=== PATIENT | male | born 1950 | race Caucasian/White ===

== ENCOUNTER 2024-07-21 10:41 | Outpatient (AMB) | payer MEDICARE, SELFPAY ==
[2024-07-21 11:38] VITALS: BP 118/60; PULSE 60; O2SAT 100; BMI 22.1
--- NOTE | 2024-07-21 11:38 | MHC.OFFVIS ---
Vital Signs 07/21/24 11:38 Height 5 ft 8 in Weight 145 lb 1.027 oz BMI 22.1 BP 118/60 Blood Pressure Location Lt brachial Position Sitting Pulse 60 Pulse Source Pulse Oximeter Pulse Oximetry (%) 100 Oxygen Delivery Method Room Air Intake Visit Reasons: arthralgia Intake Note: Patient presents for new patient visit on arthralgia pain is worse in the shoulders. Allergies IVP dye Allergy (Mild, Uncoded 07/21/24 11:41) Redness of Skin HPI HPI arthralgia: Details: In December he started a vigourous exercise routine with swimming, walking and go to the gym working out with weights. In early January he started experiencing muscle stiffness in shoulders (R>L) and upper thighs. Left arm is now more stiff than right shoulder. He had difficulty bending knee after 10 minutes from walking up. Lower extremity stiffness is almost resolved. Calf muscles are strained with walks. Hard to sleep due to shoulder pain. Difficulty with dressing himself and taking shower. Cannot drive for more than 20min due to latera thigh and but discomfort R>L. Lower back stiffness No jaw or vision loss or scalp tenderness or headaches Weight is stable. Atorvastatin was held for a month. He had a little bit of benefit with reduced stiffnes. Crestor caused worsening symptoms Tyelnol 650mg 2-3 daily with minimal benefit. He avoids NSAIDs due to hx [place]. R wrist swelling after he banged it on a table a month ago. No family hx of rheumatological disease Ex smoke 3PPD 40 years, quit 2007. Absence for alcohol for 38 years. PMx and PSx: kidney stones, inguinal hernia repar, CAD s/p RCA stent ([place] 10/23/2022). Review of Systems Const All systems reviewed & are unremarkable except as noted in HPI and below Physical Exam Vital Signs: Last Vital Signs Pulse 60 07/21/24 11:38 BP 118/60 07/21/24 11:38 Pulse Ox 100 07/21/24 11:38 Oxygen Delivery Method Room Air 07/21/24 11:38 BMI result Body Mass Index 22.1 Const Other: General: Comfortable CVS: RRR Respiratory: clear to auscultation bilaterally. Good respiratory effort Skin: No lesions seen MSK: Slight swelling of right wrist without tenderness on palpation. Heberden's nodes present. He is able to make a fist with his hands. Shoulder abduction 110 degrees left side and 120 degrees right side. Limited full internal rotation of bilateral shoulders. He is able to externally rotate his shoulders. He is able to get up from chair to exam table without using hands on armrest. No tenderness of trochanteric bursae or along ITP band. Good range of motion of bilateral hips. Good knee flexion. No MTP tenderness. Results Reviewed Results Reviewed: Labs from 02/27/2024 reviewed Assessment & Plan Assessment & Plan (1) Shoulder pain, bilateral: Comment: He has been experiencing chronic shoulder and hip girdle pain and stiffness since late December or early January initially with nocturnal pain. Prior laboratory workup revealed mild elevation in CRP 0.9 mg/dL with normal ESR 02/29/2024 with normal muscle enzymes. He had minimal benefit with decreasing atorvastatin dose with exacerbation of symptoms when his atorvastatin was switched to Crestor. I am more concerned of polymyalgia rheumatica then statin induced myopathy contributing to his symptoms. Recently he hit his right wrist on a table contributing to swelling, which is present on exam without pain. My clinical suspicion for inflammatory arthritis is low. Code(s): M25.511 - Pain in right shoulder; M25.512 - Pain in left shoulder Category: Medical Qualifiers: Chronicity: chronic Qualified Code(s): M25.511 - Pain in right shoulder; M25.512 - Pain in left shoulder; G89.29 - Other chronic pain Plan: Laboratory workup ordered including inflammatory marker Bilateral shoulder x-rays ordered to evaluate for joint pathology contributing to his symptoms If he continues to have elevated inflammatory markers, I will start prednisone 20 mg daily due to my concern for polymyalgia rheumatica He has an appointment with Cardiology next week. I am recommending that he continue his current statin rather than change to another agent at this time Return to clinic in 1 month (2) Myalgia: Code(s): M79.10 - Myalgia, unspecified site Category: Medical Plan: See above Orders: Orders Erythrocyte Sedimentation Rate Today M25.511 - Pain in right shoulder, M25.512 - Pain in left shoulder C Reactive Protein Today M25.511 - Pain in right shoulder, M25.512 - Pain in left shoulder Alanine Aminotransferase Today Z79.60 - residential (current) use of unspecified immunomodulators and immunosuppressants Complete Blood Count Auto Diff Today Z79.60 - keno terminal operator (current) use of unspecified immunomodulators and immunosuppressants Hepatitis B,C Profile Today M25.511 - Pain in right shoulder, M25.512 - Pain in left shoulder T Spot TB Today M25.511 - Pain in right shoulder, M25.512 - Pain in left shoulder Cyclic Citrullinated Peptide Today M25.511 - Pain in right shoulder, M25.512 - Pain in left shoulder Rheumatoid Factor Today M25.511 - Pain in right shoulder, M25.512 - Pain in left shoulder XR shoulder LT min 2V Today M25.511 - Pain in right shoulder, M25.512 - Pain in left shoulder XR shoulder RT min 2V Today M25.511 - Pain in right shoulder, M25.512 - Pain in left shoulder Aldolase Today M79.10 - Myalgia, unspecified site Aspartate Amino Transferase Today Z79.60 - residential (current) use of unspecified immunomodulators and immunosuppressants Creatinine Today Z79.60 - keno terminal operator (current) use of unspecified immunomodulators and immunosuppressants Creatine Kinase Total Today M79.10 - Myalgia, unspecified site Coding Level of Care Code New Pt Level 4 (05272) Diagnoses Chronic pain of both shoulders M25.511; M25.512; G89.29 Chronicity: chronic Myalgia M79.10
== END 2024-07-21 14:20 | disposition home or self-care (01) ==
PROVIDERS: Visit Provider Internal Medicine Rheumatology
DX: M25.511 Pain in right shoulder (principal); M25.512 Pain in left shoulder; G89.29 Other chronic pain; M79.10 Myalgia, unspecified site
CPT/HCPCS: 99204

== ENCOUNTER → 2024-07-21 10:41 | Outpatient (BNVA) | payer MEDICARE, SELFPAY | PROVIDERS: Visit Provider Internal Medicine Rheumatology | DX: M25.511 Pain in right shoulder (principal); M25.512 Pain in left shoulder; M79.10 Myalgia, unspecified site; G89.29 Other chronic pain | CPT/HCPCS: 99202 ==

== ENCOUNTER 2024-07-22 11:53 | Outpatient (REF) | payer MEDICARE, SELFPAY ==
--- NOTE | ~2024-07-22 | XR_ITS ---
EXAMINATION: XR LEFT SHOULDER CLINICAL INFORMATION: Pain in right shoulder M25.511. COMPARISON: None available Exam submitted for review 08/19/2024 7:14 AM HOME VISIT FIELD CARE MANAGER. TECHNIQUE: AP external rotation, Grashey, scapular Y, and axillary views of the left shoulder. FINDINGS: No fracture, dislocation, or suspicious bone lesion. Normal bone mineralization. Glenohumeral joint and AC joint demonstrate mild arthritic changes but are otherwise normal. There is normal alignment. The subacromial space is preserved. There is a laterally downsloping acromion, with a small associated bilateral spur. The remainder of the imaged bony and soft tissue structures appear normal. XR/XR shoulder LT min 2V IMPRESSION: 1. No acute findings left shoulder. 2. Mild arthritic changes in the glenohumeral and AC joints. Electronically signed by: Pablo Howe MD 08/19/2024 08:24 AM [facility]
--- NOTE | ~2024-07-22 | XR_ITS ---
EXAMINATION: XR RIGHT SHOULDER CLINICAL INFORMATION: Pain in right shoulder M25.511. COMPARISON: None available TECHNIQUE: AP external rotation, Grashey, scapular Y, and axillary views of the right shoulder. Exam submitted for review 08/19/2024 7:10 AM RECORDS MANAGEMENT DIRECTOR. FINDINGS: No fracture, dislocation, or suspicious bone lesion. Normal bone mineralization. Glenohumeral joint and AC joint demonstrate mild arthritic changes but are otherwise normal. There is normal alignment. The subacromial space is preserved. There is a laterally downsloping acromion. There is a rounded opacity in the right lung apex, which underlying nodules not excluded. Dedicated chest x-rays recommended. XR/XR shoulder RT min 2V IMPRESSION: 1. No acute findings right shoulder. 2. Mild arthritic changes in the glenohumeral and AC joints. 3. Possible right apical lung nodule for which dedicated chest x-rays, or conversely CT is recommended. Electronically signed by: Pablo Howe MD 08/19/2024 08:12 AM [facility]
[2024-07-22 12:21] LABS: MANUAL DIFF FLAG NO
[2024-07-22 13:07] LABS: Basophils Percent Auto 0.8 % (0-2); Eosinophils Absolute Auto 0.1 X10*3/uL (0.0-0.4); Eosinophils Percent Auto 2.1 % (0-4); Hematocrit 43.1 % (42.0-52.0); Hemoglobin 14.8 g/dl (14.0-18.0); Imm Gran Abs Auto 0.01 X10*3/uL (0.00-0.03); Imm Gran Pct Auto 0.2 % (0.0-0.4); Lymphocytes Percent Auto 19.9 % (20-40); Mean Corpuscular HGB Conc 34.3 g/dl (31.0-36.0); Mean Corpuscular Hemoglobin 32.9 pg (27.0-33.0); Mean Corpuscular Volume 95.8 fL (80.0-98.0); Mean Platelet Volume 9.7 fL (9.4-12.4); Monocytes Absolute Auto 0.5 X10*3/uL (0.1-1.2); Monocytes Percent Auto 9.8 % (2-11); Neutrophils Absolute Auto 3.5 x10*3/uL (2.0-8.3); Neutrophils Percent Auto 67.2 % (45-73); Platelet Count 170 X10*3/uL (160-400); Red Cell Distribution Width 12.7 % (11.0-16.0); White Blood Count 5.2 X10*3/uL (4.8-10.8)
[2024-07-22 13:38] LABS: Rheumatoid Factor 16.3 IU/mL (<15.0)
[2024-07-22 13:42] LABS: Alanine Aminotransferase 28 U/L (0-40); Aspartate Amino Transferase 29 U/L (5-37); C Reactive Protein < 0.10 mg/dL (< or = 0.50); Estimated Glomerular Filt Rate > 60
[2024-07-22 13:50] LABS: Erythrocyte Sedimentation Rate 2 MM/HR (0-15)
[2024-07-23 08:50] LABS: HBc Num1 0.07 S/CO (0.00-0.79); HBsAGNum1 0.55 S/CO (0.00-0.99); Hepatitis B Core Antibody Nonreactive (Nonreactive); Hepatitis B Surface Antigen Negative (Negative); ~HepC Num1 0.18 S/CO (0.00-0.79); ~Hepatitis B Surface Antibody NONREACTIVE (Nonreactive); ~Hepatitis C Antibody Nonreactive (Nonreactive)
[2024-07-25 11:29] LABS: TS Negative Control Passed; TS Panel A 0; TS Panel B 3; TS Positive Control Passed; TSpotTB Negative (Negative)
[2024-07-25 23:32] LABS: Cyclic Citrullinated Peptide <16 UNITS
[2024-07-28 21:58] LABS: Aldolase 4.7 U/L (<=8.1)
== END 2024-07-22 11:54 | disposition home or self-care (01) ==
LOC: HO.XRAY 11:53
PROVIDERS: PCP Physician Assistant; Visit Provider Internal Medicine Rheumatology
DX: M25.511 Pain in right shoulder (principal); M25.512 Pain in left shoulder; Z79.60 Long term (current) use of unspecified immunomodulators and immunosuppressants; M79.10 Myalgia, unspecified site
CPT/HCPCS: 36415; 73030; 82085; 82550; 82565; 84450; 84460; 85025; 85652; 86140; 86200; 86431; 86481; 86704; 86706; 86803; 87340

== ENCOUNTER → 2024-07-22 12:23 | Outpatient (BNV) | payer MEDICARE, SELFPAY | PROVIDERS: PCP Physician Assistant; Visit Provider Radiology Diagnostic Radiology | DX: M25.511 Pain in right shoulder (principal); M25.512 Pain in left shoulder | CPT/HCPCS: 73030 ==

== ENCOUNTER 2024-08-18 09:17 | Outpatient (AMB) | payer MEDICARE, SELFPAY ==
--- NOTE | 2024-08-18 09:21 | A.OFFVIS_ITS ---
Vital Signs 08/18/24 09:26 Height 5 ft 8 in Weight 156 lb BMI 23.7 BP 116/68 Blood Pressure Location Lt brachial Position Sitting Pulse 66 Pulse Source Pulse Oximeter Pulse Oximetry (%) 99 Oxygen Delivery Method Room Air Intake Visit Reasons: discuss lab results Intake Note: Patient presents for follow up on lab results. Allergies IVP dye Allergy (Mild, Uncoded 08/18/24 09:26) Redness of Skin HPI HPI discuss lab results: Details: A month ago atorvastatin was reduced from 80 mg to 40 mg. He has increased range of motion in his shoulders. He does not have the discomfort and weakness in his legs as he used to. Overall feels much better. He has been walking 30 minutes a day. Continues to have right wrist swelling that started after he smacked his wrists on a surface at work. He was told to avoid NSAIDs after he had an PA in 2022. He has not been self medicating. He does not have any new joint swelling. Review of Systems Const All systems reviewed & are unremarkable except as noted in HPI and below Physical Exam Vital Signs: Last Vital Signs Pulse 66 08/18/24 09:26 BP 116/68 08/18/24 09:26 Pulse Ox 99 08/18/24 09:26 Oxygen Delivery Method Room Air 08/18/24 09:26 BMI result Body Mass Index 23.7 Const Other: General: Comfortable CVS: RRR Respiratory: clear to auscultation bilaterally. Good respiratory effort Skin: No lesions seen MSK: Tender and swollen right wrists. No MCP, PIP or DIPJ tenderness. He is able to make a fist with both hands. Shoulder abduction is 170 degrees with good internal and external rotation. Good range of motion of lower extremities. No MTP tenderness. Assessment & Plan Assessment & Plan (1) Myalgia: Comment: Improved myalgias, shoulder pain with resolution of thigh pain with reduction of atorvastatin from 80 mg daily to 40 mg daily, which supports statin induced myopathy as a cause for his initial symptoms. Continues to have residual shoulder pain but it is much more tolerable. He has bilateral glenohumeral osteoarthritis on x-rays contributing to his shoulder pain. There is a possibility that he has concurrent rotator cuff tendinopathy. I recommend conservative management with physical therapy and short term NSAID. Code(s): M79.10 - Myalgia, unspecified site Category: Medical Plan: Physical therapy to improve shoulder range of motion and pain He will call thermometer production worker's office to inquire if his thermometer production worker is okay with patient using NSAID short term. Then he will call my office for meloxicam rx. Return to clinic in 3 months (2) Osteoarthritis of shoulders, bilateral: Comment: On x-rays. Code(s): M19.011 - Primary osteoarthritis, right shoulder; M19.012 - Primary osteoarthritis, left shoulder Category: Medical Qualifiers: Osteoarthritis type: primary Qualified Code(s): M19.011 - Primary osteoarthritis, right shoulder; M19.012 - Primary osteoarthritis, left shoulder Plan: See above Orders: Orders PT Evaluation and Treatment 08/18/24 M19.011 - Primary osteoarthritis, right shoulder, M19.012 - Primary osteoarthritis, left shoulder, M75.80 - Other shoulder lesions, unspecified shoulder, M79.10 - Myalgia, unspecified site Medications: New 2 meloxicam Take with food 15 mg PO DAILY 90 tabs 1RF Coding Level of Care Code Est Pt Level 4 (28869) Complex EM visit Add On G2211 Diagnoses Myalgia M79.10 Primary osteoarthritis of both shoulders M19.011; M19.012 Osteoarthritis type: primary
[2024-08-18 09:26] VITALS: BP 116/68; PULSE 66; O2SAT 99; BMI 23.7
== END 2024-08-18 10:10 | disposition home or self-care (01) ==
PROVIDERS: PCP Physician Assistant; Visit Provider Internal Medicine Rheumatology
DX: M79.10 Myalgia, unspecified site (principal); M19.011 Primary osteoarthritis, right shoulder; M19.012 Primary osteoarthritis, left shoulder
CPT/HCPCS: 99214; G2211

== ENCOUNTER → 2024-08-18 09:17 | Outpatient (BNVA) | payer MEDICARE, SELFPAY | PROVIDERS: PCP Physician Assistant; Visit Provider Internal Medicine Rheumatology | DX: M79.10 Myalgia, unspecified site (principal); M19.011 Primary osteoarthritis, right shoulder; M19.012 Primary osteoarthritis, left shoulder | CPT/HCPCS: 99212 ==

== ENCOUNTER 2024-08-29 14:51 | Outpatient (REF) | payer MEDICARE, SELFPAY ==
--- NOTE | ~2024-08-29 | XR_ITS ---
EXAMINATION: XR CHEST CLINICAL INFORMATION: R91.1 - Solitary pulmonary nodule COMPARISON: Right shoulder 07/22/2024 TECHNIQUE: 2 views of the chest were obtained. FINDINGS: The lungs are hyperinflated but clear acute pneumonic process. There is a subtle increased density seen in the right lung apex but now overlies the first rib. No abnormality seen on the lateral view. Heart size and poor vascularity is normal. No gross bony abnormality seen. XR/XR chest 2V IMPRESSION: Subtle increased density right upper lobe now overlying the anterior first rib. Recommend CT chest without contrast for further evaluation. Electronically signed by: Jeremiah Dumont MD 08/29/2024 04:31 PM EST
== END 2024-08-29 14:52 | disposition home or self-care (01) ==
LOC: HO.XRAY 14:51
PROVIDERS: PCP Physician Assistant Medical; Visit Provider Internal Medicine Rheumatology
DX: R91.1 Solitary pulmonary nodule (principal)
CPT/HCPCS: 71046

== ENCOUNTER → 2024-08-29 14:53 | Outpatient (BNV) | payer MEDICARE, SELFPAY | PROVIDERS: PCP Physician Assistant Medical; Visit Provider Radiology Diagnostic Radiology | DX: R91.1 Solitary pulmonary nodule (principal) | CPT/HCPCS: 71046 ==

== ENCOUNTER 2024-11-15 13:55 | Outpatient (REF) | payer MEDICARE, SELFPAY ==
--- OUTSIDE RECORDS SUMMARY | 2024-11-15 18:28 | XMS_ITS | Clinical Summary ---
Author Organization [facility] Address [address] [place] [address] Care Team Providers Care Belt Notcher Name Role Phone Rustam Weaver PA-C Primary [...] bedtime. 0 Active ergocalciferol (VITAMIN D2) capsule 78550 units Take 50,000 Units by mouth once [...] age to complete this topic Care Teams Belt Notcher Relationship Specialty Start Date End Date Rustam Weaver PA-C PCP - General Medical Services 04/24/21
--- OUTSIDE RECORDS SUMMARY | 2024-11-15 18:28 | XMS_ITS | Clinical Summary ---
Author Organization [facility] [address] [facility] Address [address] [place] [address] Phone Care Team Providers Care Pillow Agent Name Role Phone Rustam Weaver Primary Care Provider [phone] Allergies Active Allergy Reactions Criticality Noted Date [...] Care Team Description 09/21/2024 Telephone Adult Medicine [id number] [place] [phone] Rustam Weaver PA imaging 08/19/2024 12:30 PM EST Office Visit Adult Medicine [facility] [address] [place] [address] Jacquelin Sepulveda PA Primary hypertension [...] repeat in ten yrs ESOPHAGOGASTRODUODENOSCOPY 04/21/2016 PROCEDURE: [place] ESOPHAGOGASTRODUODENOSCOPY TRANSORAL DIAGNOSTIC; COMMENT: mild gastritis and gastric polyps: mild reactive changes without H. pylori and fundic gland polyp LITHOTRIPSY PROCEDURE: HISTORICAL LITHOTRIPSY SHOULDER ARTHROSCOPY PROCEDURE: [place] SURGICAL ARTHROSCOPY SHOULDER W/LSS&RESCJ ADS Medical History [...] care for your loved ones. For example, early childhood lead teacher or elderly care for an older adult? [...] 12:45 PM EDT Office Visit Adult Medicine [facility] [address] [place] [address] Jacquelin Sepulveda PA [address] [place], [place] Health Maintenance Due Date Last Done [...] mg/dL LAB CHEMISTRY METHOD 08/20/2024 12:[address] [facility] Triglycerides 50 0 - 150 mg/dL LAB CHEMISTRY METHOD 08/20/2024 12:[address] [facility] HDL 63 >=40 mg/dL LAB CHEMISTRY METHOD 08/20/2024 12:[address] [facility] LDL Calculated 42 0 - 100 mg/dL LAB CHEMISTRY METHOD 08/20/2024 12:[address] [facility] VLDL Cholesterol Irineo 10 mg/dL LAB CHEMISTRY METHOD 08/20/2024 12:[address] [facility] Non HDL Chol. (LDL+VLDL) 52 <145 mg/dL LAB CHEMISTRY METHOD 08/20/2024 12:[address] [facility] Chol/HDL Ratio 1.8 0.0 - 4.4 LAB CHEMISTRY METHOD 08/20/2024 12:[address] [facility] Blood Venous blood specimen / Unknown Venipuncture / Unknown 08/19/2024 1:21 PM EST 08/19/2024 1:21 PM EST us Jacquelin Derick [facility] BLOOD ORDERABLES Final Resul t [facility] [address] [place] [address], [place] [phone] * (ABNORMAL) Comprehensive metabolic panel (08/19/2024 1:21 PM EST) Sodium 142 133 - 145 mmol/L LAB CHEMISTRY METHOD 08/20/2024 12:[address] [facility] Potassium 3.9 3.5 - 5.5 mmol/L LAB CHEMISTRY METHOD 08/20/2024 12:[address] [facility] Chloride 109 96 - 110 mmol/L LAB CHEMISTRY METHOD 08/20/2024 12:[address] [facility] CO2 28 21 - 32 mmol/L LAB CHEMISTRY METHOD 08/20/2024 12:[address] [facility] Anion Gap 5 3 - 11 LAB CHEMISTRY METHOD 08/20/2024 12:[address] [facility] Glucose 109(H) 70 - 100 mg/dL LAB CHEMISTRY METHOD 08/20/2024 12:[address] [facility] BUN 20 5 - 25 mg/dL LAB CHEMISTRY METHOD 08/20/2024 12:[address] [facility] Creatinine 1.03 0.70 - 1.30 mg/dL LAB CHEMISTRY METHOD 08/20/2024 12:[address] [facility] eGFR 76 >=60 mL/min/1. 73m2 LAB CHEMISTRY METHOD 08/20/2024 12:[address] [facility] Comment:Calculation based on the??Chronic Kidney Disease Epidemiology Collaboration (CKD-EPI) equation refit??without adjustment for race. BUN/Creatinine Ratio 19.4 LAB CHEMISTRY METHOD 08/20/2024 12:[address] [facility] Calcium 8.8 8.5 - 10.5 mg/dL LAB CHEMISTRY METHOD 08/20/2024 12:[address] [facility] AST (SGOT) 19 10 - 42 unit/L LAB CHEMISTRY METHOD 08/20/2024 12:[address] [facility] ALT (SGPT) 36 10 - 60 unit/L LAB CHEMISTRY METHOD 08/20/2024 12:[address] [facility] Alkaline Phosphatase 77 42 - 121 unit/L LAB CHEMISTRY METHOD 08/20/2024 12:[address] [facility] Total Protein 6.5 6.0 - 8.0 g/dL LAB CHEMISTRY METHOD 08/20/2024 12:[address] [facility] Albumin 4.1 3.2 - 5.0 g/dL LAB CHEMISTRY METHOD 08/20/2024 12:[address] [facility] Total Bilirubin 1.2 0.0 - 1.4 mg/dL LAB CHEMISTRY METHOD 08/20/2024 12:[address] [facility] Blood Venous blood specimen / Unknown Venipuncture / Unknown 08/19/2024 1:21 PM EST 08/19/2024 1:21 PM EST Jacquelin [facility] BLOOD ORDERABLES Final Resul t [facility] [address] [place] [address], * Falls Risk Assessment (10/23/2023) Falls Risk Assessment abstracted Historical Provider HEALTH MAINTENANCE Final Result * Depression Screening (10/23/2023) Depression Screening abstracted Historical Provider HEALTH MAINTENANCE Final Result * Colonoscopy (10/19/2014) Colonoscopy no interpretation , abstracted Anatomical Region Laterality Modality Other Historical Provider HEALTH MAINTENANCE Final Result from Last 3 Months or Most Recently Relevant to Health Maintenance Insurance MEDICARE [facility] Care Teams Pillow Agent Relationship Specialty Start Date End Date Rustam Weaver PA PCP - General Internal Medicine 10/08/20
== END 2024-11-15 13:56 | disposition home or self-care (01) ==
LOC: HO.HKASLDS 13:55
PROVIDERS: PCP Physician Assistant; Visit Provider Internal Medicine Rheumatology
DX: M19.011 Primary osteoarthritis, right shoulder (principal); M19.012 Primary osteoarthritis, left shoulder; M79.10 Myalgia, unspecified site; M79.641 Pain in right hand; M79.642 Pain in left hand; M25.531 Pain in right wrist
CPT/HCPCS: 99212

== ENCOUNTER 2024-11-15 13:55 | Outpatient (AMB) | payer MEDICARE, SELFPAY ==
[2024-11-15 14:07] VITALS: BP 130/70; PULSE 50; O2SAT 97; BMI 29.2
--- NOTE | 2024-11-15 14:07 | MHC.OFFVIS ---
Vital Signs 11/15/24 14:07 Height 5 ft 1 in Weight 154 lb 12.232 oz BMI 29.2 BP 130/70 Blood Pressure Location Lt brachial Position Sitting Pulse 50 Pulse Source Pulse Oximeter Pulse Oximetry (%) 97 Oxygen Delivery Method Room Air Intake Visit Reasons: 3 mo follow up Intake Note: Patient presents for arthralgia. Accompanied by: Self / Same As Patient Allergies IVP dye Allergy (Mild, Uncoded 08/18/24 09:26) Redness of Skin HPI HPI 3 mo follow up: Details: Physical therapy has improved his pain. He no longer has shoulder pain at night. He has shoulder pain with certain movements. He has 1 more physical therapy session left. He continues to do exercises at home. Since reducing atorvastatin to 40 mg daily from 80 mg daily he has not had recurrence of increased pain in his thighs. Morning stiffness is all day. Right wrist remains swollen after he thinks he injured it from smacking his wrists on a hard surface at work. He has stiffness in his extremities. No new joint swelling. Review of Systems Const All systems reviewed & are unremarkable except as noted in HPI and below Physical Exam Vital Signs: Last Vital Signs Pulse 50 11/15/24 14:07 BP 130/70 11/15/24 14:07 Pulse Ox 97 11/15/24 14:07 Oxygen Delivery Method Room Air 11/15/24 14:07 BMI result Body Mass Index 29.2 Const Other: General: Comfortable CVS: RRR Respiratory: clear to auscultation bilaterally. Good respiratory effort Skin: No lesions seen MSK: swollen right wrist. No tenderness on palpation of right wrists. No MCP, PIP or DIPJ tenderness. He is able to make a fist with both hands. Shoulder abduction is 170 degrees with good internal and external rotation. Normal range of motion of lower extremities. No MTP tenderness. Assessment & Plan Assessment & Plan (1) Osteoarthritis of shoulders, bilateral: Comment: On x-rays with preserved range of motion. Pain has improved with physical therapy. Code(s): M19.011 - Primary osteoarthritis, right shoulder; M19.012 - Primary osteoarthritis, left shoulder Category: Medical Qualifiers: Osteoarthritis type: primary Qualified Code(s): M19.011 - Primary osteoarthritis, right shoulder; M19.012 - Primary osteoarthritis, left shoulder Plan: Continue physical therapy exercises at home. (2) Myalgia: Comment: No reoccurrence of myalgias. 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 Code(s): M79.10 - Myalgia, unspecified site Category: Medical Plan: Monitor clinically (3) Bilateral hand pain: Comment: He continues to have stiffness lasting all day, pain in hands and chronic synovitis of right wrist, which patient reports coincided with possible injury when he smacked his wrists on a hard surface at work. In setting of low titer positive rheumatoid factor, I will further workup his symptoms in his hand and right wrist with x-rays for evaluation of radiographic changes suggestive of inflammatory arthritis. I am also concerned that he continues to have right wrist swelling after injury at work -we will need to rule out fracture. Code(s): M79.641 - Pain in right hand; M79.642 - Pain in left hand Category: Medical Plan: Bilateral hand and right wrists x-ray ordered Inflammatory markers ordered Return to clinic in 1-2 months for review of results (4) Wrist pain: Code(s): M25.539 - Pain in unspecified wrist Category: Medical Qualifiers: Laterality: right Qualified Code(s): M25.531 - Pain in right wrist Plan: See above Orders: Orders XR hand LT min 3V Today M25.539 - Pain in unspecified wrist, M79.641 - Pain in right hand, M79.642 - Pain in left hand XR hand RT min 3V Today M25.539 - Pain in unspecified wrist, M79.641 - Pain in right hand, M79.642 - Pain in left hand XR wrist RT 2V Today M25.539 - Pain in unspecified wrist, M79.641 - Pain in right hand, M79.642 - Pain in left hand Erythrocyte Sedimentation Rate Today M25.539 - Pain in unspecified wrist, M79.641 - Pain in right hand, M79.642 - Pain in left hand C Reactive Protein Today M25.539 - Pain in unspecified wrist, M79.641 - Pain in right hand, M79.642 - Pain in left hand Coding Level of Care Code Est Pt Level 4 (08213) Complex EM visit Add On G2211 Diagnoses Primary osteoarthritis of both shoulders M19.011; M19.012 Osteoarthritis type: primary Myalgia M79.10 Bilateral hand pain M79.641; M79.642 Right wrist pain M25.531 Laterality: right
--- OUTSIDE RECORDS SUMMARY | 2024-11-15 17:04 | XMS_ITS | Clinical Summary ---
Author Organization [facility] Address [address] [place] [address] Care Team Providers Care Probate Clerk Name Role Phone Rustam Weaver PA-C Primary Care Provider Allergies Active Allergy Reactions Criticality Noted Date Comments Iodinated Contrast Media 05/13/2021 Medications Medication Sig Dispensed Refills Start Date End Date Status hydroCHLOROthiazide (MICROZIDE) 12.5 MG capsule Take 12.5 mg by mouth daily. 0 Active tamsulosin (FLOMAX) 0.4 MG CAPS Take 0.4 mg by mouth daily. 0 Active Fluticasone Furoate-Vilanterol (Breo Ellipta) 200-25 MCG/INH AEPB Inhale 1 puff into the lungs daily. 0 Active buPROPion (WELLBUTRIN XL) 150 MG 24 hr tablet Take 150 mg by mouth daily. 0 Active LORazepam (ATIVAN) 0.5 MG tablet Take 0.5 mg by mouth as needed. 0 Active NIFEdipine (PROCARDIA XL) 60 MG 24 hr tablet Take 60 mg by mouth daily. 0 Active omeprazole (PriLOSEC) 40 MG capsule Take 40 mg by mouth daily. 0 Active Triamcinolone Acetonide (Nasacort Allergy 24HR) 55 MCG/ACT AERO spray or apply inside Nose daily. 0 Active tadalafil (CIALIS) 20 MG tablet Take 10 mg by mouth daily as needed for erectile dysfunction. 0 Active montelukast (SINGULAIR) 10 MG tablet Take 10 mg by mouth every night at bedtime. 0 Active ergocalciferol (VITAMIN D2) capsule 61692 units Take 50,000 Units by mouth once a week. 0 Active Active Problems Problem Noted Date Diagnosed Date Splenomegaly 05/26/2021 Subclinical hypothyroidism 05/26/2021 Pulmonary emphysema 05/26/2021 Fatty liver 05/26/2021 Mixed hyperlipidemia 05/26/2021 Erectile dysfunction 05/26/2021 Depression with anxiety 05/26/2021 GERD (gastroesophageal reflux disease) Primary hypertension 05/26/2021 Nephrolithiasis 05/26/2021 Family History Medical History Relation Name Comments Hypertension Brother Cancer Father Relation Name Status Comments Brother Father Social History Tobacco Use Types Packs/Day Years Used Date Smoking Tobacco: Former Cigarettes Q uit: 10/09/2007 Smokeless Tobacco: Never Alcohol Use Standard Drinks/Week Comments Not Currently 0 (1 standard drink = 0.6 oz pur e alcohol) Sex and Gender Information Value Date Recorded Sex Assigned at Not on file Gender Identity Not on file Sexual Orientation Not on file Last Filed Vital Signs Vital Sign Reading Time Taken Comments Blood Pressure 125/75 05/23/2021 2:07 PM EDT Pulse 88 05/23/2021 2:07 PM EDT Temperature 36.6 ??C (97.8 ??F) 05/23/2021 2:07 PM ED T Respiratory Rate - - Oxygen Saturation 95% 05/23/2021 2:07 PM EDT Inhaled Oxygen Concentration - - Weight 85.7 kg (189 lb) 05/23/2021 2:07 PM EDT Height 172.7 cm (5' 8 ) 05/23/2021 2:07 PM EDT Body Mass Index 28.74 05/23/2021 2:07 PM EDT Plan of Treatment Health Maintenance Due Date Last Done Comments Hepatitis C Screening 1950 COVID-19 Vaccine (#1) 1950 Pneumococcal Vaccine (1 of 2 - PCV) 1956 Depression Screening 1962 Preventative Health Evaluation 1968 DTap / Tdap / Td (1 - Tdap) 1969 Colon Cancer Screening (Colonoscopy) 1995 Shingrix-Zoster Vaccine (1 of 2) 2000 RSV Adult > 60+ Yrs or Pregn ant (1 - Risk 60-74 years 1-dose series) 2010 Fall Risk Assessment 2015 Influenza Vaccine (#1) 2024 Hepatitis B Vaccines Aged Out No long er eligible based on patient's age to complete this topic RSV Ped < 20 months Aged Out No longe r eligible based on patient's age to complete this topic Care Teams Probate Clerk Relationship Specialty Start Date End Date Rustam Weaver PA-C PCP - General Medical Services 04/24/21
--- OUTSIDE RECORDS SUMMARY | 2024-11-15 17:04 | XMS_ITS | Clinical Summary ---
Author Organization [facility] [address] [facility] Address [address] [place] [address] Phone Care Team Providers Care Side Seam Envelope Machine Operator Name Role Phone Rustam Weaver Primary Care Provider [phone] Allergies Active Allergy Reactions Criticality Noted Date Comments Amlodipine Low 09/05/2021 Leg swelling House Dust Mite 05/25/2014 Iodinated Contrast Media Hives 11/18/2010 Iodinated Diagnostic agents Nifedipine 08/19/2021 Gingival hyperplasia Other Rash,Shortness of breath High 07/17/2017 IVP dye Medications tamsulosin (FLOMAX) 0.4 mg 24 hr capsule TAKE 2 CAPSULES BY MOUTH DAILY. TAKE 30 MINS AFTER SAME MEAL EVERY DAY. 180 capsule 3 06/21/20 24 Active montelukast (SINGULAIR) 10 mg tablet Take 1 tablet (10 mg total) by mouth at bedtime. 08/11/19 23 Active Breo Ellipta 200-25 mcg/dose inhaler TAKE 1 PUFF BY MOUTH EVERY DAY 60 each 3 09/22/19 25 Active aspirin 81 mg EC tablet TAKE 1 TABLET BY MOUTH EVERY DAY 90 tablet 1 09/26/19 25 Active losartan (COZAAR) 50 mg tablet TAKE 1 TABLET BY MOUTH EVERY DAY 90 tablet 1 09/28/19 25 Active atorvastatin (LIPITOR) 40 mg tablet Take 1 tablet (40 mg total) by mouth 1 (one) time each day. 90 tablet 1 11/01/19 25 Active famotidine (PEPCID) 20 mg tablet TAKE 1 TABLET BY MOUTH TWICE A DAY 180 tablet 1 11/03/19 25 Active buPROPion XL (WELLBUTRIN XL) 300 mg 24 hr tablet TAKE 1 TABLET BY MOUTH EVERY DAY IN THE MORNING 90 tablet 1 11/03/19 25 Active buPROPion XL (WELLBUTRIN XL) 300 mg 24 hr tablet Take 1 tablet (300 mg total) by mouth 1 (one) time each day in the morning. 05/05/20 24 025 Discontinued famotidine (PEPCID) 20 mg tablet Take 1 tablet (20 mg total) by mouth 2 (two) times a day. 05/05/20 24 025 Discontinued atorvastatin (LIPITOR) 40 mg tablet Take 1 tablet (40 mg total) by mouth 1 (one) time each day. 07/26/20 025 Discontinued(Re order) Active Problems Problem Noted Date Diagnosed Date ST elevation myocardial infa rction involving right coronary artery 11/10/2022 Overview (06/21/2024): SEAN to RCA Depression with anxiety 05/26/2021 Vitamin D deficiency 04/01/2021 Cholelithiasis 11/14/2020 Overview (06/21/2024): Seen on CT scan 11/13/2020 Splenomegaly 11/14/2020 Overview (06/21/2024): Seen on CT scan 11/13/2020 Subclinical hypothyroidism 04/19/2020 Pulmonary emphysema 02/13/2020 Benign prostatic hyperplasia with urinary obstru ction 12/10/2017 Fatty liver 07/15/2017 Asthma 10/28/2016 Mixed hyperlipidemia 09/26/2016 Erectile dysfunction 09/22/2016 Generalized anxiety disorder 06/26/2016 Umbilical hernia without obstruction and without gangrene 05/19/2016 Elevated blood sugar 03/28/2016 Major depressive disorder, recurrent episode, mi ld 05/31/2015 Social anxiety disorder 05/31/2015 Foot pain, bilateral 10/05/2014 GERD (gastroesophageal reflux disease) 5 SOB (shortness of breath) 05/25/2014 Primary hypertension 07/06/2012 Overview (06/21/2024): Side effect of intolerable dry cough with lisinopril and losartan. Amlodipine caused intolerable leg swelling. Having hypokalemia with hydrochlorothiazide. Dose decreased from 25 mg to 12.5 mg. Will likely need further BP adjustment whether discontinuing hydrochlorothiazide and/or adding another agent. Renal calculi 02/23/2012 Overview (06/21/2024): 4 episodes Followed by [facility] Abnormal chest CT 04/21/2011 Encounters Date Type Department Care Team Description 09/21/2024 Telephone Adult Medicine [id number] [place] [id number] Rustam Weaver PA imaging 08/19/2024 12:30 PM EST Office Visit Adult Medicine [facility] [address] [place] [address] Jacquelin Sepulveda PA Primary hypertension (Primary Dx); Mixed hyperlipidemia; 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 (CMS/HCC); Left upper quadrant abdominal pain; Conjunctivitis of both eyes, unspecified conjunctivitis type from Last 3 Months Immunizations Name Administration Dates Next Due Influenza trivalent, 0.5mL ( Fluad) 65yo and older 05/05/2024,04/21/2023,04/18/2022,06/11,04/29/2019 Influenza trivalent, 0.5mL, preservative free (Fluarix; FluLaval; Fluzone) ages 6mo and older (Afluria) 3 years and older 05/03/2015,05/25/2014,04/21/2013,05/04,04/21/2011 Influenza trivalent, with pr eservative (Fluzone; Afluria) 6mo and older 04/18/2020,06/25/2018,2017,06/09 Pfizer (ages 12 & older) Biv alent, COVID-19 03/14/2022 Pfizer SARS-CoV-2 COVID-19, mRNA, LNP-S, preservative free 07/23/2021 Pneumococcal conjugate 13 va lent (Prevnar 13, PCV13) 2mo and older 04/05/2015 Pneumococcal polysaccharide 23 valent (Pneumovax 23) 2yo and older 04/29/2019,05/04/2012 Td Tetanus diptheria (Tdvax) 7yo and older 12/09/2021 Tdap Tetanus diptheria acell ular pertussis (Boostrix; Adacel) 7yo and older 12/02/2011 Zoster Live 12/24/2011 Surgical History Surgery Date Site/Laterality Comments HERNIA REPAIR PROCEDURE: HISTORICAL HERNIA REPAIR/ING; COMMENT: inguinal ? which side KNEE SURGERY PROCEDURE: HISTORICAL KNEE SURGERY; COMMENT: arthroscopic meniscus left OTHER SURGICAL HISTORY PROCEDURE: ---- OTHER ----; COMMENT: lithotripsy COLONOSCOPY 10/23/2003 PROCEDURE: HISTORICAL COLONOSCOPY; COMMENT: Dr Mayfield - normal to cecum; repeat in 10 years. OTHER SURGICAL HISTORY 10/22/2014 PROCEDURE: COLON CA SCRN NOT HI RSK IND; COMMENT: tics; repeat in ten yrs ESOPHAGOGASTRODUODENOSCOPY 04/21/2016 PROCEDURE: [place] ESOPHAGOGASTRODUODENOSCOPY TRANSORAL DIAGNOSTIC; COMMENT: mild gastritis and gastric polyps: mild reactive changes without H. pylori and fundic gland polyp LITHOTRIPSY PROCEDURE: HISTORICAL LITHOTRIPSY SHOULDER ARTHROSCOPY PROCEDURE: [place] SURGICAL ARTHROSCOPY SHOULDER W/LSS&RESCJ ADS Medical History Medical History Date Comments Unspecified essential hypertension DX:Unspecified essential hypertension Dysthymic disorder DX:Dysthymic disorder Calculus of kidney DX:Calculus o f kidney Nonspecific (abnormal) findi ngs on radiological and other examination of other intrathoracic organs DX:Nonspecific (abnormal) f indings on radiological and other examination of other intrathoracic organs Chronic airway obstruction, not elsewhere classified DX:Chronic airway obstructio n, not elsewhere classified Asthma DX:Asthma BPH with urinary obstruction DX: BPH with urinary obstruction Male erectile dysfunction DX:Mal e erectile dysfunction GERD (gastroesophageal reflux disease) DX:GERD (gastroesophageal reflux disease) Generalized anxiety disorder DX: Generalized anxiety disorder Major depressive disorder, r ecurrent episode (CMS/HCC) DX:Major depressive disorder , recurrent episode (HCC) Mixed hyperlipidemia DX:Mixed hy perlipidemia Pulmonary emphysema (CMS/HCC) DX :Pulmonary emphysema (HCC) SOB (shortness of breath) DX:SOB (shortness of breath) Social anxiety disorder DX:Socia l anxiety disorder Splenomegaly DX:Splenomegaly Spontaneous ecchymosis DX:Sponta neous ecchymosis Umbilical hernia without obs truction and without gangrene DX:Umbilical hernia without obstruction and without gangrene Family History Medical History Relation Name Comments Hypertension Brother Prostate cancer Brother Hypertension Father Prostate cancer Father 70 Hypertension Mother from hole in heart Relation Name Status Comments Brother Alive hyperlipidemia, htn Father Alive htn, prostate c ancer Mother (Age 81) htn, heart Social History Tobacco Use Types Packs/Day Years Used Date Smoking Tobacco: Former Cigarettes 2.5 46.4 1 - 10/09/2007 Smokeless Tobacco: Never Tobacco Cessation:Counseling Given: Not Answered Alcohol Use Standard Drinks/Week Comments No 0 (1 standard drink = 0.6 oz pur e alcohol) Housing Instability Answer Date Recorde d Are you worried that in the next 2 months you may not have stable housing? No 07/29/2024 Food Access & Nutrition Answer Date Rec orded Do you have access to a vari ety of food including fruits and vegetables? Yes 07/29/2024 Access to Healthcare Answer Date Record ed Within the last 3 months, ho w many times did you visit the emergency department for your medical care? 0 07/29/2024 Health Literacy Answer Date Recorded How often do you need to hav e someone help you when you read instructions, pamphlets, or other written material from your doctor or pharmacy? Never 07/29/2024 Caregiver: How often do you need to have someone help you when you read instructions, pamphlets, or other written material from your doctor or pharmacy? Not on file 07/29/2024 Financial Risk Answer Date Recorded How hard is it for you to pa y for the very basics like food, housing, medical care, and air conditioning / heating? Not very hard 07/29/2024 Transportation Answer Date Recorded Has the lack of transportati on kept you from meetings, work, or from getting things needed for daily living? No Has the lack of transportati on kept you from medical appointments or from getting medications? No 07/29/2024 Social Isolation Answer Date Recorded How often do you feel lonely or isolated from th ose around you? Rarely 07/29/2024 Food Risk Answer Date Recorded Within the past 12 months we worried whether our food would run out before we got money to buy more. Never true 07/29/2024 Within the past 12 months th e food we bought just didn't last and we didn't have money to get more. Never true 07/29/2024 Dependent Care Answer Date Recorded Do you need help finding or paying for care for your loved ones. For example, childbirth educator or elderly care for an older adult? No 07/29/2024 Education Answer Date Recorded Do you think completing more education or training, like finishing a GED, going to college, or learning a trade, would be helpful for you? No 07/29/2024 Employment and Income Answer Date Recor ded During the last four weeks, have you been actively looking for work? No 07/29/2024 Living Situation Answer Date Recorded What is your living situation? 1 09/29/2023 Sex and Gender Information Value Date Recorded Sex Assigned at Not on file Legal Sex Male 7:02 PM EST Gender Identity Not on file Sexual Orientation Not on file Obstetrics History Last Filed Vital Signs Vital Sign Reading Time Taken Comments Blood Pressure 100/60 08/19/2024 12:41 PM EST Pulse 63 08/19/2024 12:41 PM EST Temperature 36.7 ??C (98 ??F) 08/19/2024 12:41 PM EST Respiratory Rate 15 08/19/2024 12:41 PM EST Oxygen Saturation - - Inhaled Oxygen Concentration - - Weight 68.1 kg (150 lb 3.2 oz) 08/19/2024 12:41 PM EST Height 172.7 cm (5' 8 ) 08/19/2024 12:41 PM EST Body Mass Index 22.84 08/19/2024 12:41 PM EST Plan of Treatment Upcoming Encounters Date Type Department Care Team (Late st Contact Info) Description 11/18/2024 12:45 PM EDT Office Visit Adult Medicine [facility] [address] [place] [address] Jacquelin Sepulveda PA [address] [place], [place] Health Maintenance Due Date Last Done Comments RSV Immunization Adult Patients (1 - Risk 60-74 years 1-dose series) 2010 Zoster Vaccines (2 of 3) 02/18/2012 12/24/2011 Abdominal Aortic Aneurysm (AAA) Screen 07/19/2022 Hepatitis C Screening 07/19/2022 COVID-19 Vaccine ( season) 2024 03/14/2022, 07/23/2021, 11/09/2020, Additional history exists Colorectal Cancer Screening: Colonoscopy 10/19/2024 10/19/2014 Medicare Annual Wellness Visit 10/22/2024 10/23/2023 Social Influencers of Health Screening 07/29/2025 07/29/2024 Falls Risk Assessment 08/05/2025 08/05/2024, 024 Hypertension/CHF/CAD Annual BMP Blood Test 08/19/2025 08/19/2024, 05/05/2024, 05/05/2024 Depression Screening 11/13/2025 11/13/2024, 10/23/19 Cholesterol Screening (Lipid Panel) 08/19/2029 08/19/2024, 05/05/2024, 05/05/2024 DTaP,Tdap,and Td Vaccines (3 - Td or Tdap) 12/10/2031 12/09/2021, 12/02/2011 Pneumococcal Vaccine: 50+ Years Completed 04/29/2019, 04/05/2015, 05/04/2012 Influenza Vaccine Completed 05/05/2024, , 04/18/2022, Additional history exists HIB Vaccines Aged Out No longer eligi ble based on patient's age to complete this topic HPV Vaccines Aged Out No longer eligi ble based on patient's age to complete this topic Hepatitis A Vaccines Aged Out No long er eligible based on patient's age to complete this topic Hepatitis B Vaccines Aged Out No long er eligible based on patient's age to complete this topic IPV Vaccines Aged Out No longer eligi ble based on patient's age to complete this topic MMR Vaccines Aged Out No longer eligi ble based on patient's age to complete this topic Meningococcal ACWY Vaccine Aged Out N o longer eligible based on patient's age to complete this topic Meningococcal B Vaccine Aged Out No l onger eligible based on patient's age to complete this topic RSV Immunization Patients Under 20 months Aged Out No longer eligible based on patient's age to complete this topic Varicella Vaccines Aged Out No longer eligible based on patient's age to complete this topic Procedures Procedure Name Priority Date/Time Associated Diagnosis Comments COMPREHENSIVE METABOLIC PANEL Routine 08/19/2024 1:21 PM EST Mixed hyperlipidemia LIPID PANEL WITH REFLEX TO DIRECT LDL Routine 08/19/2024 1:21 PM EST Mixed hyperlipidemia DEPRESSION SCREENING Routine 10/23/2023 FALLS RISK ASSESSMENT Routine 10/23/2023 COLONOSCOPY Routine 10/19/2014 from Last 3 Months or Most Recently Relevant to Health Maintenance Results * Lipid panel with reflex to direct LDL (08/19/2024 1:21 PM EST) Cholesterol 115 0 - 200 mg/dL LAB CHEMISTRY METHOD 08/20/2024 12:26 AM [facility] Triglycerides 50 0 - 150 mg/dL LAB CHEMISTRY METHOD 08/20/2024 12:26 AM [facility] HDL 63 >=40 mg/dL LAB CHEMISTRY METHOD 08/20/2024 12:26 AM [facility] LDL Calculated 42 0 - 100 mg/dL LAB CHEMISTRY METHOD 08/20/2024 12:26 AM [facility] VLDL Cholesterol Irineo 10 mg/dL LAB CHEMISTRY METHOD 08/20/2024 12:26 AM [facility] Non HDL Chol. (LDL+VLDL) 52 <145 mg/dL LAB CHEMISTRY METHOD 08/20/2024 12:26 AM [facility] Chol/HDL Ratio 1.8 0.0 - 4.4 LAB CHEMISTRY METHOD 08/20/2024 12:26 AM [facility] Blood Venous blood specimen / Unknown Venipuncture / Unknown 08/19/2024 1:21 PM EST 08/19/2024 1:21 PM EST us Jacquelin Derick [facility] LAB BLOOD ORDERABLES Final Resul t [facility] [address] [place] [address], [place] [phone] * (ABNORMAL) Comprehensive metabolic panel (08/19/2024 1:21 PM EST) Sodium 142 133 - 145 mmol/L LAB CHEMISTRY METHOD 08/20/2024 12:26 AM [facility] Potassium 3.9 3.5 - 5.5 mmol/L LAB CHEMISTRY METHOD 08/20/2024 12:26 AM [facility] Chloride 109 96 - 110 mmol/L LAB CHEMISTRY METHOD 08/20/2024 12:26 AM [facility] CO2 28 21 - 32 mmol/L LAB CHEMISTRY METHOD 08/20/2024 12:26 AM [facility] Anion Gap 5 3 - 11 LAB CHEMISTRY METHOD 08/20/2024 12:26 AM [facility] Glucose 109(H) 70 - 100 mg/dL LAB CHEMISTRY METHOD 08/20/2024 12:26 AM [facility] BUN 20 5 - 25 mg/dL LAB CHEMISTRY METHOD 08/20/2024 12:26 AM [facility] Creatinine 1.03 0.70 - 1.30 mg/dL LAB CHEMISTRY METHOD 08/20/2024 12:26 AM [facility] eGFR 76 >=60 mL/min/1. 73m2 LAB CHEMISTRY METHOD 08/20/2024 12:26 AM [facility] Comment:Calculation based on the??Chronic Kidney Disease Epidemiology Collaboration (CKD-EPI) equation refit??without adjustment for race. BUN/Creatinine Ratio 19.4 LAB CHEMISTRY METHOD 08/20/2024 12:26 AM [facility] Calcium 8.8 8.5 - 10.5 mg/dL LAB CHEMISTRY METHOD 08/20/2024 12:26 AM [facility] AST (SGOT) 19 10 - 42 unit/L LAB CHEMISTRY METHOD 08/20/2024 12:26 AM [facility] ALT (SGPT) 36 10 - 60 unit/L LAB CHEMISTRY METHOD 08/20/2024 12:26 AM [facility] Alkaline Phosphatase 77 42 - 121 unit/L LAB CHEMISTRY METHOD 08/20/2024 12:26 AM [facility] Total Protein 6.5 6.0 - 8.0 g/dL LAB CHEMISTRY METHOD 08/20/2024 12:26 AM [facility] Albumin 4.1 3.2 - 5.0 g/dL LAB CHEMISTRY METHOD 08/20/2024 12:26 AM [facility] Total Bilirubin 1.2 0.0 - 1.4 mg/dL LAB CHEMISTRY METHOD 08/20/2024 12:26 AM [facility] Blood Venous blood specimen / Unknown Venipuncture / Unknown 08/19/2024 1:21 PM EST 08/19/2024 1:21 PM EST Jacquelin [facility] BLOOD ORDERABLES Final Resul t [facility] [address] [place] [address], * Falls Risk Assessment (10/23/2023) Falls Risk Assessment abstracted Historical Provider HEALTH MAINTENANCE Final Result * Depression Screening (10/23/2023) Depression Screening abstracted Historical Provider HEALTH MAINTENANCE Final Result * Colonoscopy (10/19/2014) Colonoscopy no interpretation , abstracted Anatomical Region Laterality Modality Other Historical Provider HEALTH MAINTENANCE Final Result from Last 3 Months or Most Recently Relevant to Health Maintenance Insurance MEDICARE [facility] Care Teams Side Seam Envelope Machine Operator Relationship Specialty Start Date End Date Rustam Weaver PA PCP - General Internal Medicine 10/08/20
== END 2024-11-15 15:03 | disposition home or self-care (01) ==
LOC: HO.RHES 13:56
PROVIDERS: PCP Physician Assistant; Visit Provider Internal Medicine Rheumatology
DX: M19.011 Primary osteoarthritis, right shoulder (principal); M19.012 Primary osteoarthritis, left shoulder; M79.10 Myalgia, unspecified site; M79.641 Pain in right hand; M79.642 Pain in left hand; M25.531 Pain in right wrist
CPT/HCPCS: 99214; G2211

== ENCOUNTER 2024-11-18 13:58 | Outpatient (REF) | payer MEDICARE, SELFPAY ==
--- NOTE | ~2024-11-18 | XR_ITS ---
EXAMINATION: XR HAND, RIGHT CLINICAL INFORMATION: M79.641 - Pain in right hand COMPARISON: None available. TECHNIQUE: PA, lateral, and oblique views of the right hand. FINDINGS: No fracture, dislocation, or suspicious bone lesion. There is mild diffuse osteopenia. 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 Mild changes at the first MCP joint. Remainder of the joint spaces appear normal. No periarticular erosions are evident. Carpal bones are intact, normally aligned. No soft tissue abnormalities. XR/XR hand wrist RT IMPRESSION: 1. No acute bony abnormalities. 2. 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 Mild changes in the first MCP joint. Electronically signed by: Pablo Howe MD 11/18/2024 02:40 PM EDT
--- NOTE | ~2024-11-18 | XR_ITS ---
EXAMINATION: XR HAND, LEFT CLINICAL INFORMATION: M25.539 - Pain in unspecified wrist COMPARISON: None available. TECHNIQUE: PA, lateral, and oblique views of the left hand. FINDINGS: No fracture, dislocation, or suspicious bone lesion. There is mild diffuse osteopenia. Mild degenerative arthritis of the first CMC joint. Mild changes at the first MCP joint. Remainder of the joint spaces appear normal. No periarticular erosions are evident. Carpal bones are intact, normally aligned. No soft tissue abnormalities. XR/XR hand LT min 3V IMPRESSION: 1. No acute bony abnormalities. 2. Mild osteoarthrosis in the first CMC joint and first MCP joint. Electronically signed by: Pablo Howe MD 11/18/2024 02:43 PM EDT
--- OUTSIDE RECORDS SUMMARY | 2024-11-18 14:21 | XMS_ITS | Clinical Summary ---
Author Organization [facility] Address [address] [place] [address] Care Team Providers Care Printing Services Coordinator Name Role Phone Rustam Weaver PA-C Primary [...] bedtime. 0 Active ergocalciferol (VITAMIN D2) capsule 04066 units Take 50,000 Units by mouth once [...] age to complete this topic Care Teams Printing Services Coordinator Relationship Specialty Start Date End Date Rustam Weaver PA-C PCP - General Medical Services 04/24/21
--- OUTSIDE RECORDS SUMMARY | 2024-11-18 14:21 | XMS_ITS | Clinical Summary ---
Author Organization [facility] [address] [facility] Address [address] [place] [address] Phone Care Team Providers Care Spring Tacker Name Role Phone Rustam Weaver Primary Care Provider [phone] Allergies Active Allergy Reactions Criticality Noted Date [...] myocardial infa rction involving right coronary artery ([facility] V24, [facility] V28) 11/10/2022 Overview (06/21/2024): SEAN to RCA Depression with anxiety 05/26/2021 Vitamin D deficiency 04/01/2021 Cholelithiasis 11/14/2020 Overview (06/21/2024): Seen on CT scan 11/13/2020 Splenomegaly 11/14/2020 Overview (06/21/2024): Seen on CT scan 11/13/2020 Subclinical hypothyroidism 04/19/2020 Pulmonary emphysema ([facility] V24, [facility] V28) 0 02/13/2020 Benign prostatic hyperplasia with urinary obstru ction 12/10/2017 Fatty liver 07/15/2017 Asthma 10/28/2016 Mixed hyperlipidemia 09/26/2016 Erectile dysfunction 09/22/2016 Generalized anxiety disorder 06/26/2016 Umbilical hernia without obstruction and without gangrene 05/19/2016 Elevated blood sugar 03/28/2016 Major depressive disorder, r ecurrent episode, mild ([facility] V24) 05/31/2015 Social anxiety disorder 05/31/2015 Foot pain, [...] Encounters Date Type Department Care Team Description 11/18/2024 12:45 PM EDT Office Visit Adult Medicine [place] [id number] [place] [address] Jacquelin Sepulveda PA Primary hypertension (Primary Dx); Mixed hyperlipidemia; Elevated blood sugar; 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 (CMS/HCC V24, CMS/HCC V28); Pulmonary emphysema, unspecified emphysema type (CMS/HCC V24, CMS/HCC V28); Major depressive disorder, recurrent episode, mild (CMS/HCC V24); Gastroesophageal reflux disease, unspecified whether esophagitis present; Benign prostatic hyperplasia with urinary obstruction; 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 pylori and fundic gland polyp LITHOTRIPSY PROCEDURE: HISTORICAL LITHOTRIPSY SHOULDER ARTHROSCOPY PROCEDURE: AR SURGICAL ARTHROSCOPY SHOULDER W/LSS&RESCJ ADS Medical History [...] disorder Major depressive disorder, r ecurrent episode (CMS/HCC V24) DX:Major depressive disorder , recurrent episode ([facility]) Mixed hyperlipidemia DX:Mixed hy perlipidemia Pulmonary emphysema (CMS/HCC V24, CMS/HCC V28) DX:Pulmonary emphysema (HCC) SOB (shortness of breath) DX:SOB [...] care for your loved ones. For example, child care associate teacher or elderly care for an older [...] Sign Reading Time Taken Comments Blood Pressure 115/60 11/18/2024 12:51 PM EDT Pulse 60 11/18/2024 12:51 PM EDT Temperature 36.6 ??C (97.9 ??F) 11/18/2024 12:51 PM E DT Respiratory Rate 16 11/18/2024 12:51 PM EDT Oxygen Saturation 97% 11/18/2024 12:51 PM EDT Inhaled Oxygen Concentration - - Weight 69.6 kg (153 lb 6.4 oz) 11/18/2024 12:51 PM EDT Height 172.7 cm (5' 8 ) 11/18/2024 12:51 PM EDT Body Mass Index 23.32 11/18/2024 12:51 PM EDT Plan of Treatment Upcoming Encounters Date Type Department Care Team (Late st Contact Info) Description 11/28/2024 5:45 PM EDT Appointment Radiology Department [address] [phone] 01/30/2025 9:15 AM EDT Appointment Bone Density - [place] [address] [place], [place] [phone] 02/17/2025 10:30 AM EDT Office Visit Adult [facility] - [place] [address] [place], [place] [phone] Jacquelin Sepulveda PA [address] [place], [place] Health Maintenance Due Date Last Done [...] mg/dL LAB CHEMISTRY METHOD 08/20/2024 12:26 AM EST [facility] Triglycerides 50 0 - 150 mg/dL LAB CHEMISTRY METHOD 08/20/2024 12:26 AM EST [facility] HDL 63 >=40 mg/dL LAB CHEMISTRY METHOD 08/20/2024 12:26 AM EST [facility] LDL Calculated 42 0 - 100 mg/dL LAB CHEMISTRY METHOD 08/20/2024 12:26 AM EST [facility] VLDL Cholesterol Irineo 10 mg/dL LAB CHEMISTRY METHOD 08/20/2024 12:26 AM [facility] Non HDL Chol. (LDL+VLDL) 52 <145 mg/dL LAB CHEMISTRY METHOD 08/20/2024 12:26 AM [facility] Chol/HDL Ratio 1.8 0.0 - 4.4 LAB CHEMISTRY METHOD 08/20/2024 12:26 AM [facility] Blood Venous blood specimen / Unknown Venipuncture / Unknown 08/19/2024 1:21 PM EST 08/19/2024 1:21 PM EST us Jacquelin Derick SU[facility] LAB BLOOD ORDERABLES Final Resul t [facility] [address] [place] [address], [place] [phone] * (ABNORMAL) Comprehensive metabolic panel (08/19/2024 1:21 PM EST) Sodium 142 133 - 145 mmol/L LAB CHEMISTRY METHOD 08/20/2024 12:26 AM [facility] Potassium 3.9 3.5 - 5.5 mmol/L LAB CHEMISTRY METHOD 08/20/2024 12:26 AM [facility] Chloride 109 96 - 110 mmol/L LAB CHEMISTRY METHOD 08/20/2024 12:26 AM [facility] CO2 28 21 - 32 mmol/L LAB CHEMISTRY METHOD 08/20/2024 12:26 AM [facility] Anion Gap 5 3 - 11 LAB CHEMISTRY METHOD 08/20/2024 12:26 AM [facility] Glucose 109(H) 70 - 100 mg/dL LAB CHEMISTRY METHOD 08/20/2024 12:26 AM [facility] BUN 20 5 - 25 mg/dL LAB CHEMISTRY METHOD 08/20/2024 12:26 AM [facility] Creatinine 1.03 0.70 - 1.30 mg/dL LAB CHEMISTRY METHOD 08/20/2024 12:26 AM [facility] eGFR 76 >=60 mL/min/1. 73m2 LAB CHEMISTRY METHOD 08/20/2024 12:26 AM [facility] Comment:Calculation based on the??Chronic Kidney Disease Epidemiology Collaboration (CKD-EPI) equation refit??without adjustment for race. BUN/Creatinine Ratio 19.4 LAB CHEMISTRY METHOD 08/20/2024 12:26 AM [facility] Calcium 8.8 8.5 - 10.5 mg/dL LAB CHEMISTRY METHOD 08/20/2024 12:26 AM [facility] AST (SGOT) 19 10 - 42 unit/L LAB CHEMISTRY METHOD 08/20/2024 12:26 AM [facility] ALT (SGPT) 36 10 - 60 unit/L LAB CHEMISTRY METHOD 08/20/2024 12:26 AM [facility] Alkaline Phosphatase 77 42 - 121 unit/L LAB CHEMISTRY METHOD 08/20/2024 12:26 AM [facility] Total Protein 6.5 6.0 - 8.0 g/dL LAB CHEMISTRY METHOD 08/20/2024 12:26 AM [facility] Albumin 4.1 3.2 - 5.0 g/dL LAB CHEMISTRY METHOD 08/20/2024 12:26 AM [facility] Total Bilirubin 1.2 0.0 - 1.4 mg/dL LAB CHEMISTRY METHOD 08/20/2024 12:26 AM [facility] Blood Venous blood specimen / Unknown Venipuncture / Unknown 08/19/2024 1:21 PM EST 08/19/2024 1:21 PM EST us Jacquelin [facility] LAB BLOOD ORDERABLES Final Resul t [facility] [address] [place] [address], * Falls Risk Assessment (10/23/2023) Falls Risk Assessment abstracted Historical Provider MD HEALTH MAINTENANCE Final Result * Depression Screening (10/23/2023) HM Depression Screening abstracted Historical Provider HEALTH MAINTENANCE Final Result * Colonoscopy (10/19/2014) Colonoscopy no interpretation , abstracted Anatomical Region Laterality Modality Other Historical Provider HEALTH MAINTENANCE Final Result from Last 3 Months or Most Recently Relevant to Health Maintenance Insurance MEDICARE [facility] Care Teams Spring Tacker Relationship Specialty Start Date End Date Rustam Weaver PA [address] [place] [address] PCP - General Internal Medicine 11/18/24
--- OUTSIDE RECORDS SUMMARY | 2024-11-18 14:21 | XMS_ITS | Encounter Summary ---
Author Organization [facility] Address [address] [place] [address] Care Team Providers Care Foreign Banknote Teller Trader Name Role Phone Rustam Weaver Primary Care Provider [phone] [phone] Reason for Referral * Imaging (Routine) - Authorized Specialty Diagnoses / Procedures Referred By Contac t Referred To Contact Radiology Diagnoses FHx: osteoporosis correction (current) use of inhaled steroids Procedures BD Bone Density DXA Axial Skeleton Jacquelin Sepulveda PA [address] [place] [address] Phone: tel: fax: [address] Phone: tel: Referral ID Status Reason Start Date Expiration Date V isits Requested Visits Authorized [id number] Authorized 11/18/2024 11/18/2025 1 1 * Imaging (Routine) - Authorized Specialty Diagnoses / Procedures Referred By Contac t Referred To Contact Radiology Diagnoses Kidney stone Gross hematuria Procedures US Retroperitoneal Complete Jacquelin Sepulveda PA [address] [place] [address] Phone: tel: fax: [address] Phone: tel: Referral ID Status Reason Start Date Expiration Date V isits Requested Visits Authorized [id number] Authorized 11/18/2024 11/18/2025 1 1 Reason for Visit * Reason Comments Follow-up Encounter Details Date Type Department Care Team (Late st Contact Info) Description 11/18/2024 12:45 PM EDT Office Visit Adult Medicine [facility] [address] [place], [place] [phone] Jacquelin Sepulveda PA [address] [place], [place] Primary hypertension (Primary Dx); Mixed hyperlipidemia; Elevated blood sugar; 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 (CMS/HCC V24, CMS/HCC V28); Pulmonary emphysema, unspecified emphysema type (CMS/HCC V24, CMS/HCC V28); Major depressive disorder, recurrent episode, mild (CMS/HCC V24); Gastroesophageal reflux disease, unspecified whether esophagitis present; Benign prostatic hyperplasia with urinary obstruction; correction (current) use of inhaled steroids; FHx: osteoporosis; Kidney stone; Gross hematuria Social History Tobacco Use Types Packs/Day Years [...] care for your loved ones. For example, registered nurse maternal child or elderly care for an older adult? [...] on file Sexual Orientation Not on file documented as of this encounter Last Filed Vital Signs Vital Sign Reading [...] Mass Index 23.32 11/18/2024 12:51 PM EDT documented in this encounter Plan of Treatment Upcoming Encounters Date Type Department Care Team (Late st Contact Info) Description 11/28/2024 5:45 PM EDT Appointment Radiology Department - [address] [phone] 01/30/2025 9:15 AM EDT Appointment Bone Density - [address] [phone] 02/17/2025 10:30 AM EDT Office Visit Adult [facility] - [address] [phone] Jacquelin Sepulveda PA [address] [place], [place] Scheduled Orders Name Type Priority Associated Diagnoses Orde r Schedule Lipid panel with reflex to direct LDL Lab Routine Mixed hyperlipidemia 1 Occurrences starting 11/18/2024 until 11/18/2025 Hemoglobin A1c Lab Routine Elevated blood sugar Expected: 11/18/2024, Expires: 11/18/2025 US Retroperitoneal Complete Imaging Routine Kidney stone Gross hematuria Expected: 11/18/2024, Expires: 11/18/2025 Urinalysis with reflex microscopic and culture Lab Routine Kidney stone Gross hematuria 1 Occurrences starting 11/18/2024 until 11/18/2025 BD Bone Density DXA Axial Skeleton Imaging Routine 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 1 Occurrences starting 11/18/2024 until 11/18/2025 documented as of this encounter Visit Diagnoses Diagnosis Primary hypertension- Primary Unspecified essential hypertension Mixed hyperlipidemia Elevated blood sugar Other abnormal glucose 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 (CMS/HCC V24, CMS/HCC V28) Pulmonary emphysema, unspecified emphysema type (CMS/HCC V24, CMS/HCC V28) Major depressive disorder, recurrent episode, mild (CMS/HCC V24) Major depressive disorder, recurrent episode, mild Gastroesophageal reflux disease, unspecified whether esophagitis present Benign prostatic hyperplasia with urinary obstruction 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
== END 2024-11-18 13:59 | disposition home or self-care (01) ==
LOC: HO.HMGCX 13:58
PROVIDERS: PCP Physician Assistant Medical; Visit Provider Internal Medicine Rheumatology
DX: M18.0 Bilateral primary osteoarthritis of first carpometacarpal joints (principal); M79.641 Pain in right hand; M79.642 Pain in left hand; M25.539 Pain in unspecified wrist
CPT/HCPCS: 73110; 73130

== ENCOUNTER → 2024-11-18 14:03 | Outpatient (BNV) | payer MEDICARE, SELFPAY | PROVIDERS: PCP Physician Assistant Medical; Visit Provider Radiology Diagnostic Radiology | DX: M25.531 Pain in right wrist (principal); M25.532 Pain in left wrist | CPT/HCPCS: 73130 ==

== ENCOUNTER 2024-11-22 13:00 | Outpatient (RCR) | payer MEDICARE, SELFPAY ==
--- NOTE | 2024-09-16 14:00 | MHC.PT.EP ---
[facility] [place] Office [place] Office [place] Office [address] [phone] F: [phone] F: [phone] F: [phone] F: [phone] Physical Therapy Plan of Care Date of Evaluation: 09/16/24 Date of Surgery: Diagnosis: primary OA B shoulders Assessment: 74 y/o male referred to PT B shoulder primary OA. Of note, his sx started after having an MS 2 years ago and then put on a 'heavy duty' statin. Following use of statin, he noticed increasing weakness, pain, and stiffness in B shoulders and legs. Reports he 'was practically immobile and had some falls. He mentioned this to his back strip machine operator and they reduced statin dosage in half. He noticed improvement in his joint pain and stiffness. He then started walking 30 minutes 5x/week and working out at gym 3x/week doing pec flies, press, bench press, and other free weights and B shoulder pain returned. He feels less mobile and weak and frail.' Currently pain and difficulty with lifting, reaching, don/doffing clothes, reaching behind him, and general discomfort at all times. Examination shows decreased shoulder ROM, decreased scapular/ shoulder strength, pain, and impaired postural awareness. Recommend PT 2x/week for 5 weeks to address impairments, implement HEP, and optimize functional mobility. Frequency and Duration: The patient will be seen 2x/week for 5 weeks Short Term Goals: 3 weeks I with hEP Pt will be able to don/doff coat with pain < 3/10 Snf Goals: 5 weeks I wtih HEP and self management of sx Pt will be able to reach into overhead cabinets with pain < 3/10 Pt will improve shoulder AROM flexion to 130* to faciliate functional tasks Treatment Plan: Modalities to reduce pain, spasms and effusion. Manual therapy to restore motion and function. Therapeutic exercise to improve strength and flexibility. Neuromuscular re-education for posture and balance. Therapeutic activities to return to functional activities of daily living. Electronically signed by: Marixa Coe PT Please sign and return to therapist. Thank you for your referral.
[2024-11-15 19:02] LABS: C Reactive Protein < 0.10 mg/dL (< or = 0.50)
[2024-11-15 19:38] LABS: Erythrocyte Sedimentation Rate 2 MM/HR (0-15)
--- NOTE | 2024-12-28 11:51 | MHC.PT.DC ---
[facility] Office [place] [facility] [place] Office [address] Ganga Wilson [address] [phone] F: [phone] F: [phone] F: [phone] F: [phone] Physical Therapy Discharge Report Diagnosis: primary OA B shoulders Date of Surgery: Date of Evaluation: 09/16/24 Date of Discharge: 12/28/24 Treatments to Date: 9 Cancellations to Date: 0 No Shows to Date: 0 Discharge Status: Improved Function Independent with HEP Discharge Summary: Pt demonstrates improved shoulder ROM, strength and function. Reports dressing and grooming are easier and pain is less. D/c to I HEP Electronically signed by: Marixa Coe PT Please sign and return to therapist. Thank you for your referral.
== END 2024-12-28 11:51 | disposition home or self-care (01) ==
LOC: HO.PTCHIC 13:00
PROVIDERS: PCP Physician Assistant Medical; Visit Provider Internal Medicine Rheumatology
DX: M19.011 Primary osteoarthritis, right shoulder (principal); M19.012 Primary osteoarthritis, left shoulder; M75.80 Other shoulder lesions, unspecified shoulder
CPT/HCPCS: 36415; 85652; 86140; 97110; 97162

== ENCOUNTER 2024-12-23 15:47 | Outpatient (REF) | payer MEDICARE, SELFPAY ==
--- NOTE | ~2024-12-23 | MR_ITS ---
CLINICAL HISTORY: M79.641 - Pain in right hand MR right wrist with and without contrast Comparison: None available. An addendum can be provided if the radiographs are submitted for review. Findings: There is a mild amount of subcortical edema and enhancement within trapezium at its articulation with the 1st metacarpal, favored to be degenerative. Mild amount of cystic change most prominent within the carpal bones within capitate, degenerative. The musculature is normal in signal and bulk. Unremarkable vessels. No ulnar variance. The distal radioulnar joint is congruent. Mild dorsal tilt of the lunate without other abnormalities to indicate dorsal intercalated segment instability, indeterminate. Small amount of carpal fluid centered upon the articulation of the pisiform-triquetral joints. Trace fluid at the distal radial ulnar joint. The scapholunate and lunotriquetral ligaments are intact. There is increased signal at the triangular fibrocartilage complex. There is increased signal within extensor carpi radialis longus and extensor carpi ulnaris. Extensor carpi radialis brevis is mildly increased in size. The extensor compartment is otherwise normal. Normal carpal tunnel, median nerve, flexor retinaculum, flexor tendons and Guyon canal. Intact first carpometacarpal joint with joint space narrowing, osteophytosis, chondromalacia and subchondral cystic change, degenerative. Intact scaphotrapezotrapezoidal joints with minimal subcortical cystic change, degenerative. Impression: Mild amount of bone marrow edema and enhancement of the 1st carpometacarpal joint, favored to be degenerative. Mild amount of cystic change predominantly in the carpal bones, degenerative. Small amount of carpal fluid, favored to be degenerative. Trace fluid of the distal radial ulnar joint, also favored to be degenerative. Increased signal within the triangular fibrocartilage complex may indicate ligamentous injury which could be degenerative and/or posttraumatic. Increased size/ signal of extensor carpi radialis longus /brevis and extensor carpi ulnaris may indicate tendinopathy. This document has been electronically signed by: Leonor Odom MD on 12/26/2024 23:01:23
--- OUTSIDE RECORDS SUMMARY | 2024-12-23 15:51 | XMS_ITS | Clinical Summary ---
Author Organization [facility] [address] [facility] Address [address] [place] [address] Phone Care Team Providers Care Reservationist Name Role Phone Rustam Weaver Primary Care Provider [phone] Allergies Active Allergy Reactions Criticality Noted Date Comments Amlodipine Low 09/05/2021 Leg swelling House Dust Mite 05/25/2014 Iodinated Contrast Media Hives 11/18/2010 Iodinated Diagnostic agents Nifedipine 08/19/2021 Gingival hyperplasia Other Rash,Shortness of breath High 07/17/2017 IVP dye Medications tamsulosin (FLOMAX) 0.4 mg 24 hr capsule TAKE 2 CAPSULES BY MOUTH DAILY. TAKE 30 MINS AFTER SAME MEAL EVERY DAY. 180 capsule 3 06/21/2024 Active montelukast (SINGULAIR) 10 mg tablet Take 1 tablet (10 mg total) by mouth at bedtime. 08/11/2022 Active Breo Ellipta 200-25 mcg/dose inhaler TAKE 1 PUFF BY MOUTH EVERY DAY 60 each 3 09/22/2024 Active aspirin 81 mg EC tablet TAKE 1 TABLET BY MOUTH EVERY DAY 90 tablet 1 09/26/2024 Active losartan (COZAAR) 50 mg tablet TAKE 1 TABLET BY MOUTH EVERY DAY 90 tablet 1 09/28/2024 Active atorvastatin (LIPITOR) 40 mg tablet Take 1 tablet (40 mg total) by mouth 1 (one) time each day. 90 tablet 1 10/31/2024 Active famotidine (PEPCID) 20 mg tablet TAKE 1 TABLET BY MOUTH TWICE A DAY 180 tablet 1 11/02/2024 Active buPROPion XL (WELLBUTRIN XL) 300 mg 24 hr tablet TAKE 1 TABLET BY MOUTH EVERY DAY IN THE MORNING 90 tablet 1 11/02/2024 Active Active Problems Problem Noted Date Diagnosed Date ST elevation myocardial infa rction involving right coronary artery ([facility] V24, [facility] V28) 11/10/2022 Overview (06/21/2024): SEAN to RCA Depression with anxiety 05/26/2021 Vitamin D deficiency 04/01/2021 Cholelithiasis 11/14/2020 Overview (06/21/2024): Seen on CT scan 11/13/2020 Splenomegaly 11/14/2020 Overview (06/21/2024): Seen on CT scan 11/13/2020 Subclinical hypothyroidism 04/19/2020 Pulmonary emphysema ([facility] V24, [facility] V28) 0 02/13/2020 Benign prostatic hyperplasia with urinary obstru ction 12/10/2017 Fatty liver 07/15/2017 Asthma 10/28/2016 Mixed hyperlipidemia 09/26/2016 Erectile dysfunction 09/22/2016 Generalized anxiety disorder 06/26/2016 Umbilical hernia without obstruction and without gangrene 05/19/2016 Elevated blood sugar 03/28/2016 Major depressive disorder, r ecurrent episode, mild ([facility] V24) 05/31/2015 Social anxiety disorder 05/31/2015 Foot [...] Encounters Date Type Department Care Team Description 11/28/2024 5:32 PM EDT - 11/28/2024 11:59 PM EDT Hospital Encounter Radiology Department - [address] [phone] Kidney stone; Gross hematuria Discharge Disposition: Home or Self Care 11/18/2024 12:45 PM EDT Office Visit Adult Medicine [address] [phone] Jacquelin Sepulveda PA Primary hypertension (Primary Dx); Mixed hyperlipidemia; Elevated blood sugar; 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 (CMS/HCC V24, CMS/HCC V28); Pulmonary emphysema, unspecified emphysema type (CMS/HCC V24, CMS/HCC V28); Major depressive disorder, recurrent episode, mild ([facility] V24); Gastroesophageal reflux disease, unspecified whether esophagitis present; Benign prostatic hyperplasia with urinary obstruction; manager terminal (current) use of inhaled steroids; FHx: osteoporosis; Kidney stone; Gross hematuria from Last 3 Months Immunizations Name Administration [...] repeat in ten yrs ESOPHAGOGASTRODUODENOSCOPY 04/21/2016 PROCEDURE: KS ESOPHAGOGASTRODUODENOSCOPY TRANSORAL DIAGNOSTIC; COMMENT: mild gastritis and gastric polyps: mild reactive changes without H. pylori and fundic gland polyp LITHOTRIPSY PROCEDURE: HISTORICAL LITHOTRIPSY SHOULDER ARTHROSCOPY PROCEDURE: KS SURGICAL ARTHROSCOPY SHOULDER W/LSS&RESCJ ADS Medical History [...] V24) DX:Major depressive disorder , recurrent episode (HCC) [...] for your loved ones. For example, child custody evaluator or elderly care for an older adult? [...] Care Team (Late st Contact Info) Description 01/30/2025 9:15 AM EDT Appointment Bone Density - [address] [phone] 02/17/2025 10:30 AM EDT Office Visit [facility] [place] [address] [place] [address] Jacquelin Sepulveda PA [address] [place], [place] Health Maintenance Due Date Last Done Comments RSV Immunization Adult Patients (1 - Risk 60-74 years 1-dose series) 2010 Zoster Vaccines (2 of 3) 02/18/2012 12/24/2011 Abdominal Aortic Aneurysm (AAA) Screen 07/19/2022 Hepatitis C Screening 07/19/2022 COVID-19 Vaccine ( - season) 2024 03/14/2022, 07/23/2021, 11/09/2020, Additional history exists Colorectal Cancer Screening: Colonoscopy 10/19/2024 10/19/2014 Medicare Annual Wellness Visit 10/22/2024 10/23/2023 Social Influencers of Health Screening 07/29/2025 07/29/2024 Falls Risk Assessment 08/05/2025 08/05/2024, 024 Hypertension/CHF/CAD Annual BMP Blood Test 08/19/2025 08/19/2024, 05/05/2024, 05/05/2024 Depression Screening 11/13/2025 11/13/2024, 10/23/19 Cholesterol Screening (Lipid Panel) 11/21/2029 11/21/2024, 08/19/2024, 05/05/2024, Additional history exists DTaP,Tdap,and Td Vaccines (3 - Td or [...] Procedure Name Priority Date/Time Associated Diagnosis Comments US RETROPERITONEAL COMPLETE Routine 11/28/2024 5:57 PM EDT Kidney stone Gross hematuria ANDERSON URINE CULTURE TUBE Routine 11/21/2024 12:28 PM EDT Kidney stone Gross hematuria URINALYSIS WITH REFLEX MICROSCOPIC AND CULTURE Routine 11/21/2024 12:28 PM EDT Kidney stone Gross hematuria URINALYSIS WITH REFLEX MICROSCOPIC AND CULTURE Routine 11/21/2024 12:28 PM EDT Kidney stone Gross hematuria LIPID PANEL WITH REFLEX TO DIRECT LDL Routine 11/21/2024 12:04 PM EDT Mixed hyperlipidemia HEMOGLOBIN A1C Routine 11/21/2024 12:04 PM EDT Elevated blood sugar EXTERNAL XRAY REPORT 11/18/2024 COMPREHENSIVE METABOLIC PANEL Routine 08/19/2024 1:21 PM EST Mixed hyperlipidemia DEPRESSION SCREENING Routine 10/23/2023 FALLS RISK ASSESSMENT Routine 10/23/2023 COLONOSCOPY Routine 10/19/2014 from Last 3 Months or Most Recently Relevant to Health Maintenance Results * US Retroperitoneal Complete (11/28/2024 5:57 PM EDT) Anatomical Region Laterality Modality Body Ultrasound 11/29/2024 2:17 AM EDT Narrative 11/29/2024 2:20 AM EDT Retroperitoneal ultrasound. History renal stones. Hematuria. Comparison with a CT of the abdomen and pelvis obtained on 07/01/2024 as well as previous ultrasounds, latest from 04/05/2018. Both kidneys were visualized with essentially normal size and echogenicity measuring 11.5 cm in length on the right and 11.8 cm in length on the left. No evidence of from nephrolithiasis hydronephrosis masses or perinephric fluid collections. Urinary bladder was visualized without visible ultrasonographic abnormalities. Prevoid Volume of 221 cc. Postvoid volume is 41 cc. Bilateral ureteral jets were visualized. Prostate volume is 22 cc. CONCLUSIONS: No evidence of nephrolithiasis. -------- FINAL REPORT -------- Dictated By: Sheila Luo Dictated Date: 11/29/2024 02:17 ET Assigned Physician: Sheila Luo Reviewed and Electronically Signed By: Sheila Luo Signed Date: 11/29/2024 02:20 ET Workstation ID: [id number] Transcribed By: Self Edit Transcribed Date: 11/29/2024 02:17 ET Procedure Note Sheila Luo MD - 11/29/2024 Retroperitoneal ultrasound. History renal stones. Hematuria. Comparison with a CT of the abdomen and pelvis obtained on 07/01/2024 aswell as previous ultrasounds, latest from 04/05/2018. Both kidneys werevisualized with essentially normal size and echogenicity measuring 11.5 cmin length on the right and 11.8 cm in length on the left. No evidence offrom nephrolithiasis hydronephrosis masses or perinephric fluidcollections. Urinary bladder was visualized without visibleultrasonographic abnormalities. Prevoid Volume of 221 cc. Postvoid volumeis 41 cc. Bilateral ureteral jets were visualized. Prostate volume is 22cc. CONCLUSIONS: No evidence of nephrolithiasis. -------- FINAL REPORT -------- Dictated By: Sheila Luo Dictated Date: 11/29/2024 02:17 ET Assigned Physician: Sheila Luo Reviewed and Electronically Signed By: Sheila Luo Signed Date: 11/29/2024 02:20 ET Workstation ID: [id number] Transcribed By: Self Edit Transcribed Date: 11/29/2024 02:17 ET us Jacquelin Derick VARGAS US PROCEDURES Final Result * Urinalysis with reflex microscopic and culture (11/21/2024 12:28 PM EDT) Specific Guion Urine 1.018 1.003 - 1.030 LAB URINALYSIS - AUTOMATED METHOD 11/21/2024 3:[address] [facility] pH, Urine 7.0 5.0 - 8.0 pH LAB URINALYSIS - AUTOMATED METHOD 11/21/2024 3:21 PM [facility] Leukocytes, Urine Negative Negative LAB URINALYSIS - AUTOMATED METHOD 11/21/2024 3:21 PM [facility] Nitrite, Urine Negative Negative LAB URINALYSIS - AUTOMATED METHOD 11/21/2024 3:21 PM [facility] Protein, Urine Negative <=Trace mg/dL LAB URINALYSIS - AUTOMATED METHOD 11/21/2024 3:21 PM [facility] Glucose, Urine Negative Negative mg/dL LAB URINALYSIS - AUTOMATED METHOD 11/21/2024 3:21 PM [facility] Ketones, Urine Negative Negative mg/dL LAB URINALYSIS - AUTOMATED METHOD 11/21/2024 3:21 PM [facility] Urobilinogen, Urine 1.0 0.2 - 1.0 mg/dL LAB URINALYSIS - AUTOMATED METHOD 11/21/2024 3:21 PM [facility] Bilirubin, Urine Negative Negative LAB URINALYSIS - AUTOMATED METHOD 11/21/2024 3:21 PM [facility] Blood, Urine Negative Negative LAB URINALYSIS - AUTOMATED METHOD 11/21/2024 3:21 PM [facility] Urine Urine specimen obtained by clean catch procedure / Unknown Non-blood Collection / Unknown 11/21/2024 12:28 PM EDT 11/21/2024 12:28 PM EDT us Jacquelin Derick [facility] URINE ORDERABLES Final Resul t [facility] [address] [place] [address], [place] [phone] * Anderson urine culture tube (11/21/2024 12:28 PM EDT) Pathologist [facility] Extra Tube Hold for add-ons. 11/21/2024 4:[address] [facility] Comment:Auto resulted. Urine Urine specimen obtained by clean catch procedure / Unknown Non-blood Collection / Unknown 11/21/2024 12:28 PM EDT 11/21/2024 12:28 PM EDT us Jacquelin Derick [facility] URINE ORDERABLES Final Resul t [facility] [address] [place] [address], [place] [phone] * Lipid panel with reflex to direct LDL (11/21/2024 12:04 PM EDT) [facility] Cholesterol 107 0 - 200 mg/dL LAB CHEMISTRY METHOD 11/21/2024 6:01 PM [facility] Triglycerides 40 0 - 150 mg/dL LAB CHEMISTRY METHOD 11/21/2024 6:01 PM [facility] HDL 60 >=40 mg/dL LAB CHEMISTRY METHOD 11/21/2024 6:01 PM [facility] LDL Calculated 39 0 - 100 mg/dL LAB CHEMISTRY METHOD 11/21/2024 6:01 PM [facility] VLDL Cholesterol Irineo 8 mg/dL LAB CHEMISTRY METHOD 11/21/2024 6:01 PM [facility] Non HDL Chol. (LDL+VLDL) 47 <145 mg/dL LAB CHEMISTRY METHOD 11/21/2024 6:01 PM [facility] Chol/HDL Ratio 1.8 0.0 - 4.4 LAB CHEMISTRY METHOD 11/21/2024 6:01 PM [facility] Blood Venous blood specimen / Unknown Venipuncture / Unknown 11/21/2024 12:04 PM EDT 11/21/2024 12:04 PM EDT Jacquelin [facility] BLOOD ORDERABLES Final Resul t Performing Organization Address [facility] Co de Phone Number [facility] [address] [place] [address], [place] [phone] * Hemoglobin A1c (11/21/2024 12:04 PM EDT) Hemoglobin A1C 5.5 <6.5 % LAB CHEMISTRY METHOD 11/21/2024 10:[address] [facility] Mean Bld Glu Estim. 111 mg/dL LAB CHEMISTRY METHOD 11/21/2024 10:[address] [facility] Blood Venous blood specimen / Unknown Venipuncture / Unknown 11/21/2024 12:04 PM EDT 11/21/2024 12:04 PM EDT Jacquelin [facility] BLOOD ORDERABLES Final Resul t Performing Organization Address [facility]/ZIP Co de Phone Number [facility] [address] [place] [address], [place] [phone] * External Xray Report (11/18/2024) Anatomical Region Laterality Modality Radiographic Kiera ging Provider [facility] IMG XR PROCEDURES Final Result * (ABNORMAL) Comprehensive metabolic panel (08/19/2024 1:21 PM EST) Sodium 142 133 - 145 mmol/L LAB CHEMISTRY METHOD 08/20/2024 12:[address] [facility] Potassium 3.9 3.5 - 5.5 mmol/L LAB CHEMISTRY METHOD 08/20/2024 12:[address] [facility] Chloride 109 96 - 110 mmol/L LAB CHEMISTRY METHOD 08/20/2024 12:26 AM [facility] CO2 28 21 - 32 mmol/L LAB CHEMISTRY METHOD 08/20/2024 12:26 AM [facility] Anion Gap 5 3 - 11 LAB CHEMISTRY METHOD 08/20/2024 12:26 AM [facility] Glucose 109(H) 70 - 100 mg/dL LAB CHEMISTRY METHOD 08/20/2024 12:26 AM [facility] BUN 20 5 - 25 mg/dL LAB CHEMISTRY METHOD 08/20/2024 12:26 AM [facility] Creatinine 1.03 0.70 - 1.30 mg/dL LAB CHEMISTRY METHOD 08/20/2024 12:26 AM [facility] eGFR 76 >=60 mL/min/1. 73m2 LAB CHEMISTRY METHOD 08/20/2024 12:26 AM [facility] Comment:Calculation based on the??Chronic Kidney Disease Epidemiology Collaboration (CKD-EPI) equation refit??without adjustment for race. BUN/Creatinine Ratio 19.4 LAB CHEMISTRY METHOD 08/20/2024 12:26 AM [facility] Calcium 8.8 8.5 - 10.5 mg/dL LAB CHEMISTRY METHOD 08/20/2024 12:26 AM [facility] AST (SGOT) 19 10 - 42 unit/L LAB CHEMISTRY METHOD 08/20/2024 12:26 AM [facility] ALT (SGPT) 36 10 - 60 unit/L LAB CHEMISTRY METHOD 08/20/2024 12:26 AM [facility] Alkaline Phosphatase 77 42 - 121 unit/L LAB CHEMISTRY METHOD 08/20/2024 12:26 AM [facility] Total Protein 6.5 6.0 - 8.0 g/dL LAB CHEMISTRY METHOD 08/20/2024 12:26 AM [facility] Albumin 4.1 3.2 - 5.0 g/dL LAB CHEMISTRY METHOD 08/20/2024 12:[address] [facility] Total Bilirubin 1.2 0.0 - 1.4 mg/dL LAB CHEMISTRY METHOD 08/20/2024 12:[address] [facility] Blood Venous blood specimen / Unknown Venipuncture / Unknown 08/19/2024 1:21 PM EST 08/19/2024 1:21 PM EST Jacquelin Derick [facility] BLOOD ORDERABLES Final Resul t [facility] [address] [place] [address], [place] [phone] * Falls Risk Assessment (10/23/2023) Falls Risk Assessment abstracted Historical Provider MD HEALTH MAINTENANCE Final Result * Depression Screening (10/23/2023) Depression Screening abstracted Historical Provider MD HEALTH MAINTENANCE Final Result * Colonoscopy (10/19/2014) Colonoscopy no interpretation , abstracted Anatomical Region Laterality Modality Other Historical Provider MD HEALTH MAINTENANCE Final Result from Last 3 Months or Most Recently Relevant to Health Maintenance Insurance MEDICARE [facility] Care Teams Reservationist Relationship Specialty Start Date End Date Rustam Weaver PA [address] [place] [address] PCP - General Internal Medicine 11/18/24
--- OUTSIDE RECORDS SUMMARY | 2024-12-23 15:51 | XMS_ITS | Clinical Summary ---
Author Organization [facility] Address [address] [place] [address] Care Team Providers Care Frame Stylist Name Role Phone Rustam Weaver PA-C Primary [...] bedtime. 0 Active ergocalciferol (VITAMIN D2) capsule 08835 units Take 50,000 Units by mouth once [...] age to complete this topic Care Teams Frame Stylist Relationship Specialty Start Date End Date Rustam Weaver PA-C PCP - General Medical Services 04/24/21
[2024-12-23] MEDS: gadobutroL 7.5 ML VIAL IVPUSH (16:53)
== END 2024-12-23 15:48 | disposition home or self-care (01) ==
LOC: HO.MRI 15:47
PROVIDERS: PCP Physician Assistant Medical; Visit Provider Internal Medicine Rheumatology
DX: M79.641 Pain in right hand (principal); M79.642 Pain in left hand; M25.531 Pain in right wrist
CPT/HCPCS: 73223; A9585

== ENCOUNTER → 2024-12-23 15:57 | Outpatient (BNV) | payer MEDICARE, SELFPAY | PROVIDERS: PCP Physician Assistant Medical; Visit Provider Radiology Diagnostic Radiology | DX: M79.641 Pain in right hand (principal) | CPT/HCPCS: 73223 ==

== ENCOUNTER 2025-02-07 14:08 | Outpatient (AMB) | payer MEDICARE, SELFPAY ==
--- NOTE | 2025-02-07 14:09 | A.OFFVIS_ITS ---
Vital Signs 02/07/25 14:10 Height 5 ft 1 in Weight 155 lb 10.342 oz BMI 29.4 BP 110/70 Blood Pressure Location Lt brachial Position Sitting Pulse 67 Pulse Oximetry (%) 97 Oxygen Delivery Method Room Air Intake Visit Reasons: 1-2 months Intake Note: Patient presents for arthralgia. Allergies IVP dye Allergy (Mild, Uncoded 08/18/24 09:26) Redness of Skin HPI HPI 1-2 months: Details: He is having pain in right buttocks radiating to posterior thigh up to knee. Dull ache. Occurs after a drive over 30 minutes. Right wrist swelling has resolved. No new joint swelling. He had benefit with PT and improving his upper body strength. He has not been consistent with all the exercise learned from PT. He has been working on PT exercises at home. He had a bone density recently and we will be following up with PCP. He has written T-scores of bone density report. T-score of left hip is graded the -3. He also reports a T- score of L-spine -2.5. No history of fragility fracture. His father had osteoporosis with compression fractures in his spine. Physical Exam Vital Signs: Last Vital Signs Pulse 67 02/07/25 14:10 BP 110/70 02/07/25 14:10 Pulse Ox 97 02/07/25 14:10 Oxygen Delivery Method Room Air 02/07/25 14:10 BMI result Body Mass Index 29.4 Const Other: General: Comfortable CVS: RRR Respiratory: clear to auscultation bilaterally. Good respiratory effort Skin: No lesions seen MSK: No swelling of right wrists. No tenderness on palpation of right wrists. No MCP, PIP or DIPJ tenderness. He is able to make a fist with both hands. Shoulder abduction is 170 degrees with good internal and external rotation. Normal range of motion of lower extremities. Negative straight leg raising. No tenderness to palpate lumbar spinous process or paraspinal muscles. No buttocks tenderness on palpation. Results Reviewed Results Reviewed: Ordering Physician: Oskar Garcia MD Date of Service: 12/23/24 Procedure(s): MR wrist RT wo/w con Accession Number(s): [id number] cc: Oskar Garcia MD; Rustam Weaver~ CLINICAL HISTORY: M79.641 - Pain in right hand MR right wrist with and without contrast Comparison: None available. An addendum can be provided if the radiographs are submitted for review. Findings: There is a mild amount of subcortical edema and enhancement within trapezium at its articulation with the 1st metacarpal, favored to be degenerative. Mild amount of cystic change most prominent within the carpal bones within capitate, degenerative. The musculature is normal in signal and bulk. Unremarkable vessels. No ulnar variance. The distal radioulnar joint is congruent. Mild dorsal tilt of the lunate without other abnormalities to indicate dorsal intercalated segment instability, indeterminate. Small amount of carpal fluid centered upon the articulation of the pisiform-triquetral joints. Trace fluid at the distal radial ulnar joint. The scapholunate and lunotriquetral ligaments are intact. There is increased signal at the triangular fibrocartilage complex. There is increased signal within extensor carpi radialis longus and extensor carpi ulnaris. Extensor carpi radialis brevis is mildly increased in size. The extensor compartment is otherwise normal. Normal carpal tunnel, median nerve, flexor retinaculum, flexor tendons and Guyon canal. Intact first carpometacarpal joint with joint space narrowing, osteophytosis, chondromalacia and subchondral cystic change, degenerative. Intact scaphotrapezotrapezoidal joints with minimal subcortical cystic change, degenerative. Impression: Mild amount of bone marrow edema and enhancement of the 1st carpometacarpal joint, favored to be degenerative. Mild amount of cystic change predominantly in the carpal bones, degenerative. Small amount of carpal fluid, favored to be degenerative. Trace fluid of the distal radial ulnar joint, also favored to be degenerative. Increased signal within the triangular fibrocartilage complex may indicate ligamentous injury which could be degenerative and/or posttraumatic. Increased size/ signal of extensor carpi radialis longus /brevis and extensor carpi ulnaris may indicate tendinopathy. Assessment & Plan Assessment & Plan (1) Right sided sciatica: Code(s): M54.31 - Sciatica, right side Category: Medical Plan: PT ordered Return to clinic in 6 months (2) Osteoporosis: Comment: On recent bone density 01/30/2025. Lowest T-score left hip-3.4. T-score of L- spine -2.5. Code(s): M81.0 - Age-related osteoporosis without current pathological fracture Category: Medical Qualifiers: Osteoporosis type: age-related Presence of current pathological fracture: without current pathological fracture Qualified Code(s): M81.0 - Age- related osteoporosis without current pathological fracture Plan: He will be following up with PCP for review of results. I recommend further workup to rule out secondary causes of osteoporosis (PTH, TSH, vitamin-D, calcium). Osteoporosis treatment is indicated, which he will further discuss with PCP. He is on famotidine -if GERD is controlled and there is no prior history of esophagitis/gastritis on EGD, a trial of oral bisphosphonates could be considered. He is aware that if PCP would like patient to consider alternative treatments (i.e reclast) that he can follow up with me in the future. Encouraged consistency with home exercise program (3) Wrist pain: Comment: MRI right wrist revealed mild degenerative changes along with possible tendinopathies. Right wrist swelling has resolved status post injury. He has improved range of motion. Code(s): M25.539 - Pain in unspecified wrist Category: Medical Qualifiers: Laterality: right Qualified Code(s): M25.531 - Pain in right wrist Plan: No further workup is needed at this time. (4) Osteoarthritis of shoulders, bilateral: Comment: On x-rays with preserved range of motion. Pain has improved with physical therapy. Code(s): M19.011 - Primary osteoarthritis, right shoulder; M19.012 - Primary osteoarthritis, left shoulder Category: Medical Qualifiers: Osteoarthritis type: primary Qualified Code(s): M19.011 - Primary osteoarthritis, right shoulder; M19.012 - Primary osteoarthritis, left shoulder Plan: Continue physical therapy exercises at home. We discussed importance of consistency with home exercise program. Return to clinic in 6 months (5) Myalgia: Comment: No reoccurrence of myalgias. 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 Code(s): M79.10 - Myalgia, unspecified site Category: Medical Plan: Monitor clinically Orders: Orders PT Evaluation and Treatment Today M54.31 - Sciatica, right side Coding Level of Care Code Est Pt Level 4 (40920) Complex EM visit Add On G2211 Diagnoses Right sided sciatica M54.31 Age-related osteoporosis without current pathological fracture M81.0 Osteoporosis type: age-related Presence of current pathological fracture: without current pathological fracture Right wrist pain M25.531 Laterality: right Primary osteoarthritis of both shoulders M19.011; M19.012 Osteoarthritis type: primary Myalgia M79.10
[2025-02-07 14:10] VITALS: BP 110/70; PULSE 67; O2SAT 97; BMI 29.4
--- OUTSIDE RECORDS SUMMARY | 2025-02-07 15:20 | XMS_ITS | Clinical Summary ---
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
--- OUTSIDE RECORDS SUMMARY | 2025-02-07 15:20 | XMS_ITS | Clinical Summary ---
Author Organization 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 TAKE 30 MINS AFTER SAME MEAL EVERY DAY. 180 capsule 3 4 Active aspirin 81 mg EC tablet TAKE 1 TABLET BY MOUTH EVERY DAY 90 tablet 1 5 Active losartan (COZAAR) 50 mg tablet TAKE 1 TABLET BY MOUTH EVERY DAY 90 tablet 1 5 Active atorvastatin (LIPITOR) 40 mg tablet Take 1 tablet (40 mg total) by mouth 1 (one) time each day. 90 tablet 1 5 Active famotidine (PEPCID) 20 mg tablet TAKE 1 TABLET BY MOUTH TWICE A DAY 180 tablet 1 5 Active buPROPion XL (WELLBUTRIN XL) 300 mg 24 hr tablet TAKE 1 TABLET BY MOUTH EVERY DAY IN THE MORNING 90 tablet 1 5 Active Breo Ellipta 200-25 mcg/dose inhaler INHALE 1 PUFF BY MOUTH EVERY DAY 60 each 3 5 Active montelukast (SINGULAIR) 10 mg tablet TAKE 1 TABLET BY MOUTH EVERYDAY AT BEDTIME 90 tablet 1 5 Active montelukast (SINGULAIR) 10 mg tablet Take 1 tablet (10 mg total) by mouth at bedtime. 3 025 Discontinued Breo Ellipta 200-25 mcg/dose inhaler TAKE 1 PUFF BY MOUTH EVERY DAY 60 each 3 5 025 Discontinued Active Problems Problem Noted Date Diagnosed Date Age-related osteoporosis wit hout current pathological fracture 01/30/2025 ST elevation myocardial infa rction involving right coronary artery ([facility] V24, [facility]/HCC V28) 11/10/2022 Overview (06/21/2024): SEAN to RCA Depression with anxiety 05/26/2021 Vitamin D deficiency 04/01/2021 Cholelithiasis 11/14/2020 Overview (06/21/2024): Seen on CT scan 11/13/2020 Splenomegaly 11/14/2020 Overview (06/21/2024): Seen on CT scan 11/13/2020 Subclinical hypothyroidism 04/19/2020 Pulmonary emphysema ([facility] V24, [facility] V28) 0 02/13/2020 Benign prostatic hyperplasia with urinary obstru ction 12/10/2017 Fatty liver 07/15/2017 Asthma 10/28/2016 Mixed hyperlipidemia 09/26/2016 Erectile dysfunction 09/22/2016 Generalized anxiety disorder 06/26/2016 Umbilical hernia without obstruction and without gangrene 05/19/2016 Elevated blood sugar 03/28/2016 Major depressive disorder, r ecurrent episode, mild ([facility] V24) 05/31/2015 Social anxiety disorder 05/31/2015 Foot [...] Encounters Date Type Department Care Team Description 01/30/2025 9:02 AM EDT - 01/30/2025 11:59 PM EDT Hospital Encounter [facility] Density - [address] [phone] FHx: osteoporosis; nursing home (current) use of inhaled steroids Discharge Disposition: Home or Self Care 11/28/2024 5:32 PM EDT - 11/28/2024 11:59 PM EDT Hospital Encounter Radiology Department - [address] [phone] Kidney stone; Gross hematuria Discharge Disposition: Home or Self Care 11/18/2024 12:45 PM EDT Office Visit [facility] - [address] [phone] Jacquelin Sepulveda PA Primary hypertension (Primary Dx); Mixed hyperlipidemia; Elevated blood sugar; 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 (CMS/HCC V24, CMS/HCC V28); Pulmonary emphysema, unspecified emphysema type (CMS/HCC V24, CMS/HCC V28); Major depressive disorder, recurrent episode, mild (CMS/HCC V24); Gastroesophageal reflux disease, unspecified whether esophagitis present; Benign prostatic hyperplasia with urinary obstruction; nursing home (current) use of inhaled steroids; FHx: osteoporosis; [...] repeat in ten yrs ESOPHAGOGASTRODUODENOSCOPY 04/21/2016 PROCEDURE: SC ESOPHAGOGASTRODUODENOSCOPY TRANSORAL DIAGNOSTIC; COMMENT: mild gastritis and gastric polyps: mild reactive changes without H. pylori and fundic gland polyp LITHOTRIPSY PROCEDURE: HISTORICAL LITHOTRIPSY SHOULDER ARTHROSCOPY PROCEDURE: SC SURGICAL ARTHROSCOPY SHOULDER W/LSS&RESCJ ADS Medical History [...] disorder Major depressive disorder, r ecurrent episode ([facility] V24) DX:Major depressive disorder , recurrent episode (HCC) Mixed hyperlipidemia DX:Mixed hy perlipidemia Pulmonary emphysema ([facility] V24, [facility] V28) DX:Pulmonary emphysema (HCC) SOB (shortness of [...] for your loved ones. For example, child center assistant or elderly care for an older adult? [...] 60 11/18/2024 12:51 PM EDT Temperature 36.6 C (97.9 F) 11/18/2024 12:51 PM EDT Respiratory Rate 16 11/18/2024 12:51 PM EDT Oxygen Saturation 97% 11/18/2024 12:51 PM EDT Inhaled Oxygen Concentration - - Weight 69.6 kg (153 lb 6.4 oz) 11/18/2024 12:51 PM EDT Height 172.7 cm (5' 8 ) 11/18/2024 12:51 PM EDT Body Mass Index 23.32 11/18/2024 12:51 PM EDT Plan of Treatment Upcoming Encounters Date Type Department Care Team (Late st Contact Info) Description 02/17/2025 10:30 AM EDT Office Visit Adult Medicine [facility] [address] [place], [place] [phone] Jacquelin Sepulveda PA [address] [place], [place] Health Maintenance Due Date Last Done Comments RSV Immunization Adult Patients (1 - Risk 60-74 years 1-dose series) 2010 Zoster Vaccines (2 of 3) 02/18/2012 12/24/2011 Abdominal Aortic Aneurysm (AAA) Screen 07/19/2022 Hepatitis C Screening 07/19/2022 COVID-19 Vaccine ( season) 2024 03/14/2022, 07/23/2021, 11/09/2020, Additional history exists Colorectal Cancer Screening: Colonoscopy 10/19/2024 10/19/2014 Medicare Annual Wellness Visit 10/22/2024 10/23/2023 Influenza Vaccine (#1) 2025 , 04/21/2023, 04/18/2022, Additional history exists Social Influencers of Health Screening 07/29/2025 07/29/2024 Falls Risk Assessment 08/05/2025 08/05/2024, 024 Hypertension/CHF/CAD Annual BMP Blood Test 08/19/2025 08/19/2024, 05/05/2024, 05/05/2024 Depression Screening 11/13/2025 11/13/2024, 10/23/19 Cholesterol Screening (Lipid Panel) 11/21/2029 11/21/2024, 08/19/2024, 05/05/2024, Additional history exists DTaP,Tdap,and Td Vaccines (3 - Td or Tdap) 12/10/2031 12/09/2021, 12/02/2011 Pneumococcal Vaccine: 50+ Years Completed 04/29/2019, 04/05/2015, 05/04/2012 HIB Vaccines Aged Out No longer eligi [...] Procedure Name Priority Date/Time Associated Diagnosis Comments BD BONE DENSITY DXA AXIAL SKELETON Routine 01/30/2025 9:55 AM EDT FHx: osteoporosis nursing home (current) use of inhaled steroids US RETROPERITONEAL COMPLETE Routine 11/28/2024 5:57 PM [...] Routine 10/23/2023 FALLS RISK ASSESSMENT Routine 10/23/2023 HM COLONOSCOPY Routine 10/19/2014 from Last 3 Months or Most Recently Relevant to Health Maintenance Results * BD Bone Density DXA Axial Skeleton (01/30/2025 9:55 AM EDT) Anatomical Region Laterality Modality Wrist, Hip, L-spine Bone Densito metry 01/30/2025 10:0 4 AM EDT Impressions 01/30/2025 10:06 AM EDT Osteoporosis by WHO criteria. [facility] Department of Internal Medicine recommends using National Osteoporosis Foundation (NOF) guidelines in treatment decisions related to osteoporosis. NOF guidelines suggest considering treatment for postmenopausal women and men aged 50 or older presenting with the following: History of hip or vertebral fracture. T-score = -2.5 (DXA) at the femoral neck, total hip, or spine, after appropriate evaluation to exclude secondary causes. Low bone mass (T-score between -1.0 and -2.5 at the femoral neck or spine) AND a 10-year probability of a hip fracture = 3% OR a 10-year probability of a major osteoporosis-related fracture = 20% based on the [place]-adapted WHO algorithm Please note that all treatment decisions require clinical judgment and consideration of individual patient factors, including patient preferences, co-morbidities, previous drug use, risk factors not captured in the FRAX model (e.g., frailty, falls, vitamin D deficiency, increased bone turnover, interval significant decline in bone density) and possible under- or over-estimation of fracture risk by FRAX. Optional alternative screening schedule based on neville Cota., [facility] August 28, 2011 for patients with osteopenia (based on hip BMD T-score) is as follows: * advanced osteopenia (T scores -2.00 to -2.49), BMD testing every year * moderate osteopenia (T scores -1.50 to -1.99), BMD testing every 5 years mild osteopenia or normal BMD (T scores -1.50 and higher), BMD testing every 15 years -------- FINAL REPORT -------- Dictated By: Adele Waller Dictated Date: 01/30/2025 10:04 ET Assigned Physician: Adele Waller Reviewed and Electronically Signed By: Adele Waller Signed Date: 01/30/2025 10:06 ET Workstation ID: [id number] Transcribed By: Self Edit Transcribed Date: 01/30/2025 10:04 ET Narrative 01/30/2025 10:06 AM EDT BONE DENSITY SCAN (DEXA): FINDINGS: Lumbar Spine T-score is -2.5. (SD relative to 20-29 y/o adult) Z-score is -1.5. (SD relative to age matched peers) This is considered osteoporosis by WHO criteria. Left Hip T-score is -3.4. Z-score is -2.1. This is considered osteoporosis by WHO criteria. Comparison exam(s): None. Lateral survey view of the thoracolumbar spine shows no significant compression deformities. Procedure Note Adele Waller MD - 01/30/2025 BONE DENSITY SCAN (DEXA): FINDINGS: Lumbar Spine T-score is -2.5. (SD relative to 20-29 y/o adult) Z-score is -1.5. (SD relative to age matched peers) This is considered osteoporosis by WHO criteria. Left Hip T-score is -3.4. Z-score is -2.1. This is considered osteoporosis by WHO criteria. Comparison exam(s): None. Lateral survey view of the thoracolumbar spine shows no significantcompression deformities. IMPRESSION: Osteoporosis by WHO criteria. [facility] Department of Internal Medicine recommendsusing National Osteoporosis Foundation (NOF) guidelines in treatmentdecisions related to osteoporosis. NOF guidelines suggest consideringtreatment for postmenopausal women and men aged 50 or older presentingwith the following: History of hip or vertebral fracture. T-score = -2.5 (DXA) at the femoral neck, total hip, or spine, afterappropriate evaluation to exclude secondary causes. Low bone mass (T-score between -1.0 and -2.5 at the femoral neck or spine)AND a 10-year probability of a hip fracture = 3% OR a 10-year probabilityof a major osteoporosis-related fracture = 20% based on the [place]-adapted WHOalgorithm Please note that all treatment decisions require clinical judgment andconsideration of individual patient factors, including patientpreferences, co-morbidities, previous drug use, risk factors not capturedin the FRAX model (e.g., frailty, falls, vitamin D deficiency, increasedbone turnover, interval significant decline in bone density) and possibleunder- or over-estimation of fracture risk by FRAX. Optional alternative screening schedule based on neville Cota., NEJMJanuary 2011 for patients with osteopenia (based on hip BMD T-score)is as follows: * advanced osteopenia (T scores -2.00 to -2.49), BMD testing every year * moderate osteopenia (T scores -1.50 to -1.99), BMD testing every 5years mild osteopenia or normal BMD (T scores -1.50 and higher), BMD testingevery 15 years -------- FINAL REPORT -------- Dictated By: Adele Waller Dictated Date: 01/30/2025 10:04 ET Assigned Physician: Adele Waller Reviewed and Electronically Signed By: Adele Waller Signed Date: 01/30/2025 10:06 ET Workstation ID: [id number] Transcribed By: Self Edit Transcribed Date: 01/30/2025 10:04 ET us Jacquelin Derick [facility] IMG DXA PROCEDURES Final Result * US Retroperitoneal Complete (11/28/2024 5:57 PM [...] Luo Reviewed and Electronically Signed By: Sheila Lou Signed Date: 11/29/2024 02:20 ET Workstation ID: [id number] Transcribed By: Self Edit Transcribed Date: 11/29/2024 [...] Signed Date: 11/29/2024 02:20 ET Workstation ID: [id number] Transcribed By: Self Edit Transcribed Date: 11/29/2024 02:17 ET us Jacquelin Derick [facility] IMTayo US PROCEDURES Final Result * Urinalysis with reflex microscopic and culture (11/21/2024 12:28 PM EDT) Specific [place] Urine 1.018 1.003 - 1.030 LAB URINALYSIS - AUTOMATED METHOD 11/21/2024 3:21 PM EDT [facility] pH, Urine 7.0 5.0 - 8.0 pH LAB URINALYSIS - AUTOMATED METHOD 11/21/2024 3:21 PM EDT [facility] Leukocytes, Urine Negative Negative LAB URINALYSIS - AUTOMATED METHOD 11/21/2024 3:21 PM [facility] Nitrite, Urine Negative Negative LAB URINALYSIS - AUTOMATED METHOD 11/21/2024 3:21 PM [facility] Protein, Urine Negative <=Trace mg/dL LAB URINALYSIS - AUTOMATED METHOD 11/21/2024 3:21 PM [facility] Glucose, Urine Negative Negative mg/dL LAB URINALYSIS - AUTOMATED METHOD 11/21/2024 3:21 PM [facility] Ketones, Urine Negative Negative mg/dL LAB URINALYSIS - AUTOMATED METHOD 11/21/2024 3:21 PM [facility] Urobilinogen, Urine 1.0 0.2 - 1.0 mg/dL LAB URINALYSIS - AUTOMATED METHOD 11/21/2024 3:21 PM [facility] Bilirubin, Urine Negative Negative LAB URINALYSIS - AUTOMATED METHOD 11/21/2024 3:21 PM [facility] Blood, Urine Negative Negative LAB URINALYSIS - AUTOMATED METHOD 11/21/2024 3:21 PM [facility] Urine Urine specimen obtained by clean catch procedure / Unknown Non-blood Collection / Unknown 11/21/2024 12:28 PM EDT 11/21/2024 12:28 PM EDT us Jacquelin Derick [facility] LAB URINE ORDERABLES Final Resul t [facility] [address] [place] [address], * Anderson urine culture tube (11/21/2024 12:28 PM EDT) Extra Tube Hold for add-ons. 11/21/2024 4:01 PM EDT [facility] Comment:Auto resulted. Urine Urine specimen obtained by clean catch procedure / Unknown Non-blood Collection / Unknown 11/21/2024 12:28 PM EDT 11/21/2024 12:28 PM EDT us Jacquelin Derick PA LAB URINE ORDERABLES Final Resul t Performing Organization Address City/[facility]/ZIP Co de Phone Number [facility] [address] [place] [address], [place] [phone] * Lipid panel with reflex to direct LDL (11/21/2024 12:04 PM EDT) Cholesterol 107 0 - 200 mg/dL LAB CHEMISTRY METHOD 11/21/2024 6:01 PM EDT [facility] Triglycerides 40 0 - 150 mg/dL LAB CHEMISTRY METHOD 11/21/2024 6:01 PM T [facility] HDL 60 >=40 mg/dL LAB CHEMISTRY METHOD 11/21/2024 6:01 PM EDT [facility] LDL Calculated 39 0 - 100 mg/dL LAB CHEMISTRY METHOD 11/21/2024 6:01 PM [facility] VLDL Cholesterol Irineo 8 mg/dL LAB CHEMISTRY METHOD 11/21/2024 6:01 PM T [facility] Non HDL Chol. (LDL+VLDL) 47 <145 mg/dL LAB CHEMISTRY METHOD 11/21/2024 6:01 PM T [facility] Chol/HDL Ratio 1.8 0.0 - 4.4 LAB CHEMISTRY METHOD 11/21/2024 6:01 PM [facility] Blood Venous blood specimen / Unknown Venipuncture / Unknown 11/21/2024 12:04 PM EDT 11/21/2024 12:04 PM EDT us Jacquelin Sepulveda PA LAB BLOOD ORDERABLES Final Resul t Performing Organization Address City/[facility]/ZIP Co de Phone Number [facility] [address] [place] [address], [place] [phone] * Hemoglobin A1c (11/21/2024 12:04 PM EDT) [facility] Hemoglobin A1C 5.5 <6.5 % LAB CHEMISTRY METHOD 11/21/2024 10:14 PM EDT [facility] Mean Bld Glu Estim. 111 mg/dL LAB CHEMISTRY METHOD 11/21/2024 10:14 PM EDT [facility] Blood Venous blood specimen / Unknown Venipuncture / Unknown 11/21/2024 12:04 PM EDT 11/21/2024 12:04 PM EDT us Jacquelin Sepulveda PA LAB BLOOD ORDERABLES Final Resul t [facility] [address] [place] [address], [place] [phone] * External Xray Report (11/18/2024) Anatomical Region Laterality Modality Radiographic Kiera ging Provider [facility] XR PROCEDURES Final Result * (ABNORMAL) Comprehensive metabolic panel (08/19/2024 1:21 PM EST) [facility] Sodium 142 133 - 145 mmol/L LAB CHEMISTRY METHOD 08/20/2024 12:[address] [facility] Potassium 3.9 3.5 - 5.5 mmol/L LAB CHEMISTRY METHOD 08/20/2024 12:[address] [facility] Chloride 109 96 - 110 mmol/L LAB CHEMISTRY METHOD 08/20/2024 12:[address] [facility] CO2 28 21 - 32 mmol/L LAB CHEMISTRY METHOD 08/20/2024 12:[address] [facility] Anion Gap 5 3 - 11 LAB CHEMISTRY METHOD 08/20/2024 12:[address] [facility] Glucose 109(H) 70 - 100 mg/dL LAB CHEMISTRY METHOD 08/20/2024 12:[address] [facility] BUN 20 5 - 25 mg/dL LAB CHEMISTRY METHOD 08/20/2024 12:[address] [facility] Creatinine 1.03 0.70 - 1.30 mg/dL LAB CHEMISTRY METHOD 08/20/2024 12:[address] [facility] eGFR 76 >=60 mL/min/1. 73m2 LAB CHEMISTRY METHOD 08/20/2024 12:[address] [facility] Comment:Calculation based on the Chronic Kidney Disease Epidemiology Collaboration (CKD-EPI) equation refit without adjustment for race. BUN/Creatinine Ratio 19.4 LAB CHEMISTRY METHOD 08/20/2024 12:[address] [facility] Calcium 8.8 8.5 - 10.5 mg/dL LAB CHEMISTRY METHOD 08/20/2024 12:[address] [facility] AST (SGOT) 19 10 - 42 unit/L LAB CHEMISTRY METHOD 08/20/2024 12:[address] [facility] ALT (SGPT) 36 10 - 60 unit/L LAB CHEMISTRY METHOD 08/20/2024 12:[address] [facility] Alkaline Phosphatase 77 42 - 121 unit/L LAB CHEMISTRY METHOD 08/20/2024 12:[address] [facility] Total Protein 6.5 6.0 - 8.0 g/dL LAB CHEMISTRY METHOD 08/20/2024 12:[address] [facility] Albumin 4.1 3.2 - 5.0 g/dL LAB CHEMISTRY METHOD 08/20/2024 12:[address] [facility] Total Bilirubin 1.2 0.0 - 1.4 mg/dL LAB CHEMISTRY METHOD 08/20/2024 12:[address] [facility] Blood Venous blood specimen / Unknown Venipuncture / Unknown 08/19/2024 1:21 PM EST 08/19/2024 1:21 PM EST us Jacquelin [facility] LAB BLOOD ORDERABLES Final Resul t [facility] [address] [place] [address], [place] [phone] * Falls Risk Assessment (10/23/2023) Falls Risk Assessment abstracted Historical Provider MD HEALTH MAINTENANCE Final Result * Depression Screening (10/23/2023) HM Depression Screening abstracted Historical Provider MD HEALTH MAINTENANCE Final Result * Colonoscopy (10/19/2014) Colonoscopy no interpretation , abstracted Anatomical Region Laterality Modality Other Historical Provider HEALTH MAINTENANCE Final Result from Last 3 Months or Most Recently Relevant to Health Maintenance Insurance MEDICARE [id number] Care Teams Sushi Chef Relationship Specialty Start Date End Date Rustam Weaver PA [address] [place] [address] PCP - General Internal Medicine 11/18/24
== END 2025-02-07 14:40 | disposition home or self-care (01) ==
LOC: HO.RHES 14:08
PROVIDERS: PCP Physician Assistant Medical; Visit Provider Internal Medicine Rheumatology
DX: M54.31 Sciatica, right side (principal); M81.0 Age-related osteoporosis without current pathological fracture; M25.531 Pain in right wrist; M19.011 Primary osteoarthritis, right shoulder; M19.012 Primary osteoarthritis, left shoulder; M79.10 Myalgia, unspecified site
CPT/HCPCS: 99214; G2211

== ENCOUNTER → 2025-02-07 14:08 | Outpatient (BNVA) | payer MEDICARE, SELFPAY | PROVIDERS: PCP Physician Assistant Medical; Visit Provider Internal Medicine Rheumatology | DX: M54.31 Sciatica, right side (principal); M79.18 Myalgia, other site; M19.011 Primary osteoarthritis, right shoulder; M19.012 Primary osteoarthritis, left shoulder; M25.531 Pain in right wrist; M81.0 Age-related osteoporosis without current pathological fracture | CPT/HCPCS: 99212 ==